=== PATIENT | female | born 1985 | race Caucasian/White ===

== ENCOUNTER 2016-03-28 23:46 | Emergency (ER) | payer MEDICAID ==
[~2016-03-28 23:46] MED LIST: ALBU17IN INH; BUSP10TA PO; CITA20TA4 PO; DEPA250T32 PO; JANU100T PO; LISI2.5T3 GT; METF1000 PO; NORC5TAB PO; VITA400T15 PO
[2016-03-29] MEDS ORDERED: ONDANSETRON 4MG/2ML VIAL (J2405) As Ordered ONE (00:42)
[2016-03-29] MEDS ORDERED: NORCO, ANEXSIA 5/325MG TABLET (HYDROcodone/ACETAMINOPHEN) As Ordered ONE (00:42)
[2016-03-29 00:43] LABS: CONTROL LINE UCG INT CTR LINE PRESENT
[2016-03-29 00:53] LABS: BASO % 0.5 % (0.0-1.0); EOS # 0.2 K/mm3 (0.0-0.50); EOS % 1.5 % (0.0-3.0); LARGE UNSTAINED CELL # 0.2 K/mm3 (0.0-0.4); LARGE UNSTAINED CELL % 2.2 % (0.0-4.0); LYMPH # 2.8 K/mm3 (1.5-4.5); LYMPH % 26.7 % (24.0-44.0); MEAN CORPUSCULAR HEMOGLOBIN 26.6 pg (27.0-33.0); MEAN CORPUSCULAR HGB CONC 32.7 g/dl (32.0-36.5); MEAN CORPUSCULAR VOLUME 81.1 fl (80.0-96.0); MONO # 0.4 K/mm3 (0.0-0.8); MONO % 3.9 % (0.0-5.0); NEUTROPHILS # 6.9 K/mm3 (1.8-7.7); NEUTROPHILS % 65.2 % (36.0-66.0); PLATELET COUNT, AUTOMATED 382 k/mm3 (150-450); RED CELL DISTRIBUTION WIDTH 13.8 % (11.5-14.5); WHITE BLOOD COUNT 10.6 K/mm3 (4.0-10.0)
[2016-03-29 01:18] LABS: ALBUMIN 3.5 GM/DL (3.2-5.2); ALBUMIN/GLOBULIN RATIO 0.81 (1.00-1.93); ALKALINE PHOSPHATASE 107 U/L (45-117); ALT/SGPT 25 U/L (12-78); AMYLASE 51 U/L (25-115); ANION GAP 8 MEQ/L (8-16); AST/SGOT 13 U/L (15-37); BILIRUBIN,DIRECT 0.1 MG/DL (0.0-0.2); BILIRUBIN,TOTAL 0.5 MG/DL (0.2-1.0); BLOOD UREA NITROGEN 8 MG/DL (7-18); CALCIUM LEVEL 8.6 MG/DL (8.5-10.1); CARBON DIOXIDE LEVEL 28 MEQ/L (21-32); CHLORIDE LEVEL 102 MEQ/L (98-107); CREATININE FOR GFR 0.63 MG/DL (0.55-1.02); GLOMERULAR FILTRATION RATE > 60.0 (>60); GLUCOSE, FASTING 85 MG/DL (70-105); POTASSIUM SERUM 3.4 MEQ/L (3.5-5.1); SODIUM LEVEL 138 MEQ/L (136-145); TOTAL PROTEIN 7.8 GM/DL (6.4-8.2)
[2016-03-29] MEDS ORDERED: ACETAMINOPHEN 325 MG TAB As Ordered ONE (02:19)
--- NOTE | 2016-03-29 02:30 | REPUSA ---
CLINICAL HISTORY: Abdominal pain. TECHNIQUE: Multiple axial, sagittal and coronal CT images were obtained through the abdomen and pelvi s without administration of oral or IV contrast material. COMMENTS: The liver is mildly enlarged with decreased attenuation without mass or defect. There is no intra or extrahepatic biliary ductal dilatation. The spleen is normal. The gallbladder is surgically absent. T he pancreas is of normal contour and attenuation characteristics. There is no evidence of adrenal mas s. The kidneys are normal in size, shape and configuration. No renal or ureteral calculi are identified. There is no hydroureter or hydronephrosis. There is no evidence for appendicitis. There is no bowel wall thickening. No evidence for small or la rge bowel obstruction. There is no evidence of abdominal ascites or lymphadenopathy. There is no evidence of intrinsic or extrinsic bladder mass. There is no pelvic ascites or lymphadeno inez. Mild large bowel fecal stasis. Images of the lung bases show no evidence of pleural or parenchymal mass. There are no pleural effusi ons. The bony structures are free of lytic or blastic lesions. Multilevel degenerative changes are seen in volving the thoracolumbar spine. Scattered calcifications are seen involving the aorta and major branches compatible with atherosclero sis. IMPRESSION: Hepatomegaly with fatty liver infiltration. Prior cholecystectomy. Thank you for your kind referral of this patient.
[2016-03-29] MEDS ORDERED: METHOCARBAMOL 500 MG TAB As Ordered ONE (02:31)
--- NOTE | 2016-03-29 02:47 | EDDOCDS ---
Physician Documentation [facility] Name: Asmita Dumas Age: 30 yrs Sex: Female : 1985 Arrival Date: 03/28/2016 Time: 23:46 Bed I1 / M1 Private MD: Anayeli Hoang Disposition: 03/29/16 02:29 Discharged to Home/Self Care. Impression: Low back pain, Nausea and vomiting. - Condition is Stable. - Discharge Instructions: Back Pain, Adult, Nausea and Vomiting. - Prescriptions for Robaxin 500 mg Oral Tablet - take 2 tablet by ORAL route every 6 hours As needed; 40 tablet. Tylenol 325 mg Oral Tablet - take 2 tablet by ORAL route every 6 hours as needed; 1 bottle. - Medication Reconciliation, Local Pharmacy Hours form. - Follow up: Anayeli Hoang MD; When: 1 - 2 days; Reason: Recheck today's complaints, Continuance of care. - Problem is new. - Symptoms have improved. Historical: - Allergies: Aspirinthroat swelling; - Home Meds: 1. Celexa 40 mg Oral tab once daily (Last dose: 03/28/2016 07:30) 2. BuSpar 20 mg Oral tab three times a day (Last dose: 03/28/2016 07:30) 3. gabapentin 600 mg Oral tab 3 times per day (Last dose: 03/28/2016 07:30) 4. Lyrica 150 mg Oral 3 times per day (Last dose: 03/27/2016) 5. Lipitor 20 mg Oral tab 1 tab once daily (Last dose: 03/28/2016 07:30) 6. lisinopril 2.5 mg Oral tab once daily (Last dose: 03/28/2016 07:30) 7. metformin 1,000 mg Oral tab 2 times per day (Last dose: 03/28/2016 07:30) 8. Vitamin [place] 82308 unit weekly Sunday 9. glyburide 5 mg oral tab 1 tab 2 times per day (Last dose: 03/28/2016 07:30) 10. insulin pen 40 units twice a day (Last dose: 03/28/2016 07:30) - PMHx: Anxiety; Depression; Diabetes - NIDDM: uncontrolled; Hypercholesterolemia; Bipolar disorder; Borderline Personality Disorder; - PSHx: Hernia repair; Tonsillectomy; Appendectomy; Cholecystectomy; Tubal ligation; - Social history: Smoking status: Patient uses tobacco products, current every day smoker. No barriers to communication noted, The patient speaks fluent Romansh, Speaks appropriately for age. - Family history: Not pertinent. - : The pt / caregiver states he / she is not on anticoagulants. Home medication list is obtained from the patient. - Exposure Risk Screening:: None identified. TRAIN EXAMINER: 03/28 23:57 LMP 03/02/2016 dsf Vital Signs: 23:48 BP 137 / 79; Pulse 99; Resp 18 S; Temp 98.5(O); Pulse Ox 99% on R/A; Weight 101.6 kg / gr2 223.99 lbs (M); Height 4 ft. 10 in. (147.32 cm) (R); Pain 6/10; 03/29 02:41 BP 122 / 68; Pulse 89; Resp 18; Temp 97.6(O); Pulse Ox 98% on R/A; Pain 5/10; mlc 03/28 23:48 Body Mass Index 46.82 (101.60 kg, 147.32 cm) gr2 MDM: 00:30 Undress patient appropriately for examination ordered. ck7 00:30 IV Saline Lock ordered. ck7 00:30 NS 0.9% 1000 ml IV at bolus once ordered. ck7 00:30 HYDROcodone-acetaminophen 5 mg-325 mg 1 tabs PO once ordered. ck7 00:30 Ondansetron 4 mg IVP once ordered. ck7 00:30 Urine Culture Ordered. EDMS 00:31 Amylase Ordered. EDMS 00:31 Basic Metabolic Profile Ordered. EDMS 00:31 CBC with Diff Ordered. EDMS 00:31 Lipase Ordered. EDMS 00:31 Liver Profile Ordered. EDMS 00:31 Urinalysis Ordered. EDMS 00:31 NOTHING BY MOUTH+DIET ordered. EDMS 00:36 UCG- In Lab Ordered. EDMS 00:41 Financial registration complete. pm4 00:46 [facility] Payment Agreement was scanned into [employer] and attached to record. pm4 00:58 CT ABD & PELVIS: No Contrast Ordered. EDMS 01:25 Basic Metabolic Profile Reviewed. ck7 01:25 CBC with Diff Reviewed. ck7 01:25 Liver Profile Reviewed. ck7 01:25 Urinalysis Reviewed. ck7 01:25 Amylase Reviewed. ck7 01:25 Lipase Reviewed. ck7 01:25 UCG- In Lab Reviewed. ck7 02:11 Acetaminophen Tablet 650 mg PO once ordered. ck7 02:28 Methocarbamol 1 grams PO once; dispense to go home with ordered. ck7 Administered Medications: 00:48 Drug: NS 0.9% 1000 ml [sodium chloride 0.9 % intravenous solution] Route: IV; Rate: mlc bolus; Site: right antecubital; 00:48 Drug: HYDROcodone-acetaminophen 1 tabs [hydrocodone 5 mg-acetaminophen 325 mg tablet (1 mlc tabs)] Route: PO; 00:49 Drug: Ondansetron 4 mg [ondansetron HCl 2 mg/mL intravenous solution (2 mL)] Route: mlc IVP; Site: right antecubital; 02:21 Drug: Acetaminophen 650 mg [acetaminophen 325 mg tablet (2 tabs)] Route: PO; ld5 02:40 Drug: Methocarbamol 1 grams [methocarbamol 500 mg tablet (2 tabs)] Route: PO; [facility] [place] 02:41 Follow up: Response: Med's dispensed home [facility] [place] Signatures: Dispatcher [employer] EDMalaika Gutierrez RN RN dsf Brendan Zimmerman, RPA-C RPA-Cck7 Taylor Posadas RN RN [facility] [place] Drew Adams, Reg Reg pm4 Mónica Oneal RN ld5 The chart was reviewed and I authenticate all verbal orders and agree with the evaluation and treatment provided.Attachments: 00:46 [facility] Payment Agreement pm4 MTDD
--- NOTE | 2016-03-29 02:47 | EDDOCDS ---
Nurse's Notes [facility] Name: Asmita Dumas Age: 30 yrs Sex: Female : 1985 Arrival Date: 03/28/2016 Time: 23:46 Bed I1 / M1 Private MD: Anayeli Hoang Diagnosis: Low back pain;Nausea and vomiting Presentation: 03/28 23:54 Presenting complaint: Patient states: left mid back pain that started at 1600. pt dsf reports vomiting earlier. Acute neurological deficits are not present. Mechanism of Injury: No Mechanism of Injury. Adult Sepsis Screening: The patient does not have new or worsening altered mentation. Patient's respiratory rate is less than 22. Systolic blood pressure is greater than 100. Patient has a qSOFA score of 0- Negative Sepsis Screen. Suicide/Homicide risk assessment- the patient denies having any suicidal and/or homicidal ideations and does not present with any other emotional, behavioral or mental health complaints. Status: Patient is not a non emergency services ambulance driver or dependent. Transition of care: patient was not received from another setting of care. 23:54 Method Of Arrival: Walkin/Carried/Asstd dsf 23:54 Acuity: MERON Level 4 dsf Triage Assessment: 23:57 General: Appears in no apparent distress, Behavior is appropriate for age. Pain: dsf Location: left mid back Pain currently is 9 out of 10 on a pain scale. HIV screening NA for this visit Offered previously. Musculoskeletal: Reports pain in left mid back. BAKER BISCUIT: 23:57 LMP 03/02/2016 dsf Historical: - Allergies: Aspirinthroat swelling; - Home Meds: 1. Celexa 40 mg Oral tab once daily (Last dose: 03/28/2016 07:30) 2. BuSpar 20 mg Oral tab three times a day (Last dose: 03/28/2016 07:30) 3. gabapentin 600 mg Oral tab 3 times per day (Last dose: 03/28/2016 07:30) 4. Lyrica 150 mg Oral 3 times per day (Last dose: 03/27/2016) 5. Lipitor 20 mg Oral tab 1 tab once daily (Last dose: 03/28/2016 07:30) 6. lisinopril 2.5 mg Oral tab once daily (Last dose: 03/28/2016 07:30) 7. metformin 1,000 mg Oral tab 2 times per day (Last dose: 03/28/2016 07:30) 8. Vitamin D Oral 00066 unit weekly Sunday 9. glyburide 5 mg oral tab 1 tab 2 times per day (Last dose: 03/28/2016 07:30) 10. insulin pen 40 units twice a day (Last dose: 03/28/2016 07:30) - PMHx: Anxiety; Depression; Diabetes - NIDDM: uncontrolled; Hypercholesterolemia; Bipolar disorder; Borderline Personality Disorder; - PSHx: Hernia repair; Tonsillectomy; Appendectomy; Cholecystectomy; Tubal ligation; - Social history: Smoking status: Patient uses tobacco products, current every day smoker. No barriers to communication noted, The patient speaks fluent Nepalese, Speaks appropriately for age. - Family history: Not pertinent. - : The pt / caregiver states he / she is not on anticoagulants. Home medication list is obtained from the patient. - Exposure Risk Screening:: None identified. Screenin:48 Infection Control. gr2 03/29 00:50 Screening information is obtained from the patient. Fall risk: No risks identified. mlc Assistance ADL's: requires no assistance with activities of daily living. Abuse/DV Screen: The patient / caregiver reports he/she is: not in a situation that causes fear, pain or injury. Nutritional screening: No deficits noted. Advance Directives: Currently, there is no health care proxy. home support is adequate. Assessment: 00:49 General: Appears in no apparent distress, comfortable, Behavior is cooperative. Pain: mlc Location: left mid back Pain currently is 9 out of 10 on a pain scale. Neurological: Level of Consciousness is awake, alert, obeys commands, Oriented to person, place, time. Cardiovascular: Capillary refill < 3 seconds Heart tones S1 S2 present. Respiratory: Airway is patent Respiratory effort is even, unlabored, Respiratory pattern is regular, Breath sounds are clear bilaterally. GI: Abdomen is obese, Bowel sounds present X 4 quads. Abd is soft X 4 quads Reports nausea. : Denies burning with urination, pain with urination. Derm: Skin is normal, Bruising that is dark purple, on right lower quadrant and left lower quadrant. 01:44 Reassessment: Patient appears in no apparent distress at this time. Patient states mlc symptoms have not improved. IV fluids infusing per order. resp easy/unlabored. pt watching tv. pt reports pain continues, provider made aware. 02:21 General: Pt laying quietly in bed. No apparent distress. Medicated per orders. Will ld5 continue to monitor. 02:41 General: Appears in no apparent distress, comfortable, Behavior is cooperative. mlc Neurological: Level of Consciousness is awake, alert, Oriented to person, place, time. Respiratory: Airway is patent Respiratory effort is even, unlabored, Respiratory pattern is regular. Derm: Skin is normal. Vital Signs: 03/28 23:48 BP 137 / 79; Pulse 99; Resp 18 S; Temp 98.5(O); Pulse Ox 99% on R/A; Weight 101.6 kg gr2 (M); Height 4 ft. 10 in. (147.32 cm) (R); Pain 6/10; 03/29 02:41 BP 122 / 68; Pulse 89; Resp 18; Temp 97.6(O); Pulse Ox 98% on R/A; Pain 5/10; mlc 03/28 23:48 Body Mass Index 46.82 (101.60 kg, 147.32 cm) gr2 Vitals: 03/28 23:48 Log In Time: March 28, 2016 at 23:48. gr2 ED Course: 23:48 Patient visited by Loretta Bhakta. gr2 23:48 Anayeli Hoang MD is Private Physician. gr2 23:48 Patient moved to Waiting gr2 23:50 Patient visited by Loretta Bhakta. gr2 23:50 Patient moved to Pre RCE gr2 23:55 Triage Initiated dsf 23:58 Patient moved to Triage 2 dsf 03/29 00:25 Brendan Zimmerman RPA-C is PHCP. ck7 00:25 Trish Rodrigez MD is Attending Physician. ck7 00:26 Patient visited by Brendan Zimmerman RPA-C. ck7 00:30 Patient moved to I1 / M1 ld5 00:37 UCG- In Lab Sent. ld5 00:37 Urinalysis Sent. ld5 00:37 Urine Culture Sent. ld5 00:37 Urine collected. Clean catch specimen. Urine specimen sent to lab. ld5 00:46 [facility] [place] Agreement was scanned into [employer]mitt[employer] and attached to record. pm4 00:48 Amylase Sent. mlc 00:48 Basic Metabolic Profile Sent. mlc 00:48 CBC with Diff Sent. mlc 00:48 Lipase Sent. mlc 00:48 Liver Profile Sent. mlc 00:50 The patient / caregiver is instructed regarding the plan of care and ED course. mlc 00:50 Inserted saline lock: 20 gauge in right antecubital area and blood collected. The mlc patient tolerated the procedure well. 00:51 Patient visited by Taylor Posadas RN. mlc 01:27 Patient visited by Brendan Zimmerman RPA-C. ck7 01:45 Patient visited by Taylor Posadas RN. mlc 02:15 Patient visited by Brendan Zimmerman RPA-C. ck7 02:21 Patient visited by Mónica Oneal RN. ld5 02:29 Anayeli Hoang MD is Referral Physician. ck7 02:41 Discontinued IV lock intact, bleeding controlled, pressure dressing applied, No mlc redness/swelling at site. No procedures done that require assistance. Administered Medications: 00:48 Drug: NS 0.9% 1000 ml [sodium chloride 0.9 % intravenous solution] Route: IV; Rate: mlc bolus; Site: right antecubital; 00:48 Drug: HYDROcodone-acetaminophen 1 tabs [hydrocodone 5 mg-acetaminophen 325 mg tablet (1 mlc tabs)] Route: PO; 00:49 Drug: Ondansetron 4 mg [ondansetron HCl 2 mg/mL intravenous solution (2 mL)] Route: mlc IVP; Site: right antecubital; 02:21 Drug: Acetaminophen 650 mg [acetaminophen 325 mg tablet (2 tabs)] Route: PO; ld5 02:40 Drug: Methocarbamol 1 grams [methocarbamol 500 mg tablet (2 tabs)] Route: PO; mlc 02:41 Follow up: Response: Med's dispensed home mlc Order Results: Lab Order: Amylase; SPEC'M 03/29/16 00:46 Test: AMYLASE; Value: 51; Range: 25-115; Units: U/L; Status: F Lab Order: Basic Metabolic Profile; SPEC'M 03/29/16 00:46 Test: GLUCOSE, FASTING; Value: 85; Range: 70-105; Units: MG/DL; Status: F Test: BLOOD UREA NITROGEN; Value: 8; Range: 7-18; Units: MG/DL; Status: F Test: CREATININE FOR GFR; Value: 0.63; Range: 0.55-1.02; Units: MG/DL; Status: F Test: GLOMERULAR FILTRATION RATE; Value: > 60.0; Range: >60; Status: F Test: SODIUM LEVEL; Value: 138; Range: 136-145; Units: MEQ/L; Status: F Test: POTASSIUM SERUM; Value: 3.4; Range: 3.5-5.1; Abnormal: Below low normal; Units: MEQ/L; Status: F Test: CHLORIDE LEVEL; Value: 102; Range: 98-107; Units: MEQ/L; Status: F Test: CARBON DIOXIDE LEVEL; Value: 28; Range: 21-32; Units: MEQ/L; Status: F Test: ANION GAP; Value: 8; Range: 8-16; Units: MEQ/L; Status: F Test: CALCIUM LEVEL; Value: 8.6; Range: 8.5-10.1; Units: MG/DL; Status: F Test Note: ; Units are mL/min/1.73 m2 Chronic Kidney Disease Staging per NKF: Stage I & II GFR >=60 Normal to Mildly Decreased Stage III GFR 30-59 Moderately Decreased Stage IV GFR 15-29 Severely Decreased Stage V GFR <15 Very Little GFR Left ESRD GFR <15 on THORACIC MEDICINE SPECIALIST Lab Order: CBC with Diff; SPEC'M 03/29/16 00:46 Test: WHITE BLOOD COUNT; Value: 10.6; Range: 4.0-10.0; Abnormal: Above high normal; Units: K/mm3; Status: F Test: RED BLOOD COUNT; Value: 5.37; Range: 4.00-5.40; Units: M/mm3; Status: F Test: HEMOGLOBIN; Value: 14.3; Range: 12.0-16.0; Units: g/dl; Status: F Test: HEMATOCRIT; Value: 43.6; Range: 36.0-47.0; Units: %; Status: F Test: MEAN CORPUSCULAR VOLUME; Value: 81.1; Range: 80.0-96.0; Units: fl; Status: F Test: MEAN CORPUSCULAR HEMOGLOBIN; Value: 26.6; Range: 27.0-33.0; Abnormal: Below low normal; Units: pg; Status: F Test: MEAN CORPUSCULAR HGB CONC; Value: 32.7; Range: 32.0-36.5; Units: g/dl; Status: F Test: RED CELL DISTRIBUTION WIDTH; Value: 13.8; Range: 11.5-14.5; Units: %; Status: F Test: PLATELET COUNT, AUTOMATED; Value: 382; Range: 150-450; Units: k/mm3; Status: F Test: NEUTROPHILS %; Value: 65.2; Range: 36.0-66.0; Units: %; Status: F Test: LYMPH %; Value: 26.7; Range: 24.0-44.0; Units: %; Status: F Test: MONO %; Value: 3.9; Range: 0.0-5.0; Units: %; Status: F Test: EOS %; Value: 1.5; Range: 0.0-3.0; Units: %; Status: F Test: BASO %; Value: 0.5; Range: 0.0-1.0; Units: %; Status: F Test: LARGE UNSTAINED CELL %; Value: 2.2; Range: 0.0-4.0; Units: %; Status: F Test: NEUTROPHILS #; Value: 6.9; Range: 1.8-7.7; Units: K/mm3; Status: F Test: LYMPH #; Value: 2.8; Range: 1.5-4.5; Units: K/mm3; Status: F Test: MONO #; Value: 0.4; Range: 0.0-0.8; Units: K/mm3; Status: F Test: EOS #; Value: 0.2; Range: 0.0-0.50; Units: K/mm3; Status: F Test: BASO #; Value: 0.0; Range: 0.0-0.2; Units: K/mm3; Status: F Test: LARGE UNSTAINED CELL #; Value: 0.2; Range: 0.0-0.4; Units: K/mm3; Status: F Lab Order: Lipase; SPEC' 03/29/16 00:46 Test: LIPASE; Value: 122; Range: 73-393; Units: U/L; Status: F Lab Order: Liver Profile; SPEC' 03/29/16 00:46 Test: AST/SGOT; Value: 13; Range: 15-37; Abnormal: Below low normal; Units: U/L; Status: F Test: ALT/SGPT; Value: 25; Range: 12-78; Units: U/L; Status: F Test: ALKALINE PHOSPHATASE; Value: 107; Range: 45-117; Units: U/L; Status: F Test: BILIRUBIN,TOTAL; Value: 0.5; Range: 0.2-1.0; Units: MG/DL; Status: F Test: BILIRUBIN,DIRECT; Value: 0.1; Range: 0.0-0.2; Units: MG/DL; Status: F Test: TOTAL PROTEIN; Value: 7.8; Range: 6.4-8.2; Units: GM/DL; Status: F Test: ALBUMIN; Value: 3.5; Range: 3.2-5.2; Units: GM/DL; Status: F Test: ALBUMIN/GLOBULIN RATIO; Value: 0.81; Range: 1.00-1.93; Abnormal: Below low normal; Status: F Lab Order: Urinalysis; SPEC'M 03/29/16 00:33 Test: APPEARANCE, URINE; Value: HAZY; Range: CLEAR; Status: F Test: COLOR, URINE; Value: YELLOW; Range: YELLOW; Status: F Test: PH,URINE; Value: 5.0; Range: 5.0-9.0; Units: UNITS; Status: F Test: SPECIFIC GRAVITY URINE AUTO; Value: 1.026; Range: 1.002-1.035; Status: F Test: PROTEIN, URINE AUTO; Value: 2+; Range: NEGATIVE; Abnormal: Above high normal; Units: mg/dL; Status: F Test: GLUCOSE, URINE (UA) AUTO; Value: NEGATIVE; Range: NEGATIVE; Units: mg/dL; Status: F Test: KETONE, URINE AUTO; Value: NEGATIVE; Range: NEGATIVE; Units: mg/dL; Status: F Test: UROBILINOGEN, URINE AUTO; Value: 0.2; Range: 0.0-2.0; Units: mg/dL; Status: F Test: BILIRUBIN, URINE AUTO; Value: NEGATIVE; Range: NEGATIVE; Status: F Test: NITRITE, URINE AUTO; Value: NEGATIVE; Range: NEGATIVE; Status: F Test: LEUKOCYTE ESTERASE, URINE AUTO; Value: NEGATIVE; Range: NEGATIVE; Status: F Test: BLOOD, URINE BLOOD; Value: NEGATIVE; Range: NEGATIVE; Status: F Test: WBC, URINE AUTO; Value: 3; Range: 0-3; Units: /HPF; Status: F Test: RBC, URINE AUTO; Value: 1; Range: 0-3; Units: /HPF; Status: F Test: BACTERIA, URINE AUTO; Value: NEGATIVE; Range: NEGATIVE; Status: F Test: SQUAMOUS EPITHELIAL CELL UR AU; Value: 7; Range: 0-6; Units: /HPF; Status: F Test: MUCUS, URINE; Value: LARGE; Range: NEGATIVE; Status: F Test: HYALINE CAST, URINE AUTO; Value: 21; Range: 0-1; Units: /LPF; Status: F Lab Order: UCG- In Lab; SPEC'M 03/29/16 00:32 Test: URINE PREG TEST; Value: NEGATIVE; Range: NEGATIVE; Status: F Outcome: 02:29 Discharge ordered by Provider. ck7 02:41 Discharge Assessment: Patient awake, alert and oriented x 3. No cognitive and/or mlc functional deficits noted. Patient verbalized understanding of disposition instructions. patient administered narcotics - yes. Pt provided with safe discharge. The following High Risk Discharge criteria are identified: None. Discharged to home ambulatory. Condition: good Condition: stable. Discharge instructions given to patient, Instructed on discharge instructions, follow up and referral plans. medication usage, no driving heavy equipment, Demonstrated understanding of instructions, medications, Pt was receptive of discharge instructions/ teaching. Prescriptions given X 2. CT Study completed. Property sent home with patient. 02:46 [place] [facility] [place]atures: Mónica Oneal,RN RN marlene5 Malaika NolascoRN RN dsf Brendan Zimmerman, RPA-C [id number] Loretta Bhakta gr2 Taylor Posadas RN RN [facility] [place] Drew Adams, Reg Reg pm4 Corrections: (The following items were deleted from the chart) 03/28 23:58 23:54 Acuity: MERON Level 3 dsf dsf MTDD
--- NOTE | 2016-03-31 03:47 | EDDOCDS ---
Nurse's Notes [facility] Name: Asmita Dumas Age: 30 yrs Sex: Female : 1985 Arrival Date: 03/28/2016 Time: 23:46 Bed I1 / M1 Private MD: Anayeli Hoang Diagnosis: Low back pain;Nausea and vomiting Presentation: 03/28 23:54 Presenting complaint: Patient states: left mid back pain that started at 1600. pt dsf reports vomiting earlier. Acute neurological deficits are not present. Mechanism of Injury: No Mechanism of Injury. Adult Sepsis Screening: The patient does not have new or worsening altered mentation. Patient's respiratory rate is less than 22. Systolic blood pressure is greater than 100. Patient has a qSOFA score of 0- Negative Sepsis Screen. Suicide/Homicide risk assessment- the patient denies having any suicidal and/or homicidal ideations and does not present with any other emotional, behavioral or mental health complaints. Status: Patient is not a caseworker protective services or dependent. Transition of care: patient was not received from another setting of care. 23:54 Method Of Arrival: Walkin/Carried/Asstd dsf 23:54 Acuity: MERON Level 4 dsf Triage Assessment: 23:57 General: Appears in no apparent distress, Behavior is appropriate for age. Pain: dsf Location: left mid back Pain currently is 9 out of 10 on a pain scale. HIV screening NA for this visit Offered previously. Musculoskeletal: Reports pain in left mid back. 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 Celexa 40 mg Oral tab once daily (Last dose: 03/28/2016 07:30) 2. BuSpar 20 mg Oral tab three times a day (Last dose: 03/28/2016 07:30) 3. gabapentin 600 mg Oral tab 3 times per day (Last dose: 03/28/2016 07:30) 4. Lyrica 150 mg Oral 3 times per day (Last dose: 03/27/2016) 5. Lipitor 20 mg Oral tab 1 tab once daily (Last dose: 03/28/2016 07:30) 6. lisinopril 2.5 mg Oral tab once daily (Last dose: 03/28/2016 07:30) 7. metformin 1,000 mg Oral tab 2 times per day (Last dose: 03/28/2016 07:30) 8. Vitamin D Oral 98479 unit weekly Sunday 9. glyburide 5 mg oral tab 1 tab 2 times per day (Last dose: 03/28/2016 07:30) 10. insulin pen 40 units twice a day (Last dose: 03/28/2016 07:30) - PMHx: Anxiety; Depression; Diabetes - NIDDM: uncontrolled; Hypercholesterolemia; Bipolar disorder; Borderline Personality Disorder; - PSHx: Hernia repair; Tonsillectomy; Appendectomy; Cholecystectomy; Tubal ligation; - Social history: Smoking status: Patient uses tobacco products, current every day smoker. No barriers to communication noted, The patient speaks fluent Venezuelan, Speaks appropriately for age. - Family history: Not pertinent. - : The pt / caregiver states he / she is not on anticoagulants. Home medication list is obtained from the patient. - Exposure Risk Screening:: None identified. Screenin:48 Infection Control. gr2 03/29 00:50 Screening information is obtained from the patient. Fall risk: No risks identified. mlc Assistance ADL's: requires no assistance with activities of daily living. Abuse/DV Screen: The patient / caregiver reports he/she is: not in a situation that causes fear, pain or injury. Nutritional screening: No deficits noted. Advance Directives: Currently, there is no health care proxy. home support is adequate. Assessment: 00:49 General: Appears in no apparent distress, comfortable, Behavior is cooperative. Pain: mlc Location: left mid back Pain currently is 9 out of 10 on a pain scale. Neurological: Level of Consciousness is awake, alert, obeys commands, Oriented to person, place, time. Cardiovascular: Capillary refill < 3 seconds Heart tones S1 S2 present. Respiratory: Airway is patent Respiratory effort is even, unlabored, Respiratory pattern is regular, Breath sounds are clear bilaterally. GI: Abdomen is obese, Bowel sounds present X 4 quads. Abd is soft X 4 quads Reports nausea. : Denies burning with urination, pain with urination. Derm: Skin is normal, Bruising that is dark purple, on right lower quadrant and left lower quadrant. 01:44 Reassessment: Patient appears in no apparent distress at this time. Patient states mlc symptoms have not improved. IV fluids infusing per order. resp easy/unlabored. pt watching tv. pt reports pain continues, provider made aware. 02:21 General: Pt laying quietly in bed. No apparent distress. Medicated per orders. Will ld5 continue to monitor. 02:41 General: Appears in no apparent distress, comfortable, Behavior is cooperative. mlc Neurological: Level of Consciousness is awake, alert, Oriented to person, place, time. Respiratory: Airway is patent Respiratory effort is even, unlabored, Respiratory pattern is regular. Derm: Skin is normal. Vital Signs: 03/28 23:48 BP 137 / 79; Pulse 99; Resp 18 S; Temp 98.5(O); Pulse Ox 99% on R/A; Weight 101.6 kg gr2 (M); Height 4 ft. 10 in. (147.32 cm) (R); Pain 6/10; 03/29 02:41 BP 122 / 68; Pulse 89; Resp 18; Temp 97.6(O); Pulse Ox 98% on R/A; Pain 5/10; mlc 03/28 23:48 Body Mass Index 46.82 (101.60 kg, 147.32 cm) gr2 Vitals: 03/28 23:48 Log In Time: March 28, 2016 at 23:48. gr2 ED Course: 23:48 Patient visited by Loretta Bhakta. gr2 23:48 Anayeli Hoang MD is Private Physician. gr2 23:48 Patient moved to Waiting gr2 23:50 Patient visited by Loretta Bhakta. gr2 23:50 Patient moved to Pre RCE gr2 23:55 Triage Initiated dsf 23:58 Patient moved to Triage 2 dsf 03/29 00:25 Brendan Zimmerman RPA-C is PHCP. ck7 00:25 Trish Rodrigez MD is Attending Physician. ck7 00:26 Patient visited by Brendan Zimmerman RPA-C. ck7 00:30 Patient moved to I1 / M1 ld5 00:37 UCG- In Lab Sent. ld5 00:37 Urinalysis Sent. ld5 00:37 Urine Culture Sent. ld5 00:37 Urine collected. Clean catch specimen. Urine specimen sent to lab. ld5 00:46 [facility] [place] was scanned into [employer] and attached to record. pm4 00:48 Amylase Sent. mlc 00:48 Basic Metabolic Profile Sent. mlc 00:48 CBC with Diff Sent. mlc 00:48 Lipase Sent. mlc 00:48 Liver Profile Sent. mlc 00:50 The patient / caregiver is instructed regarding the plan of care and ED course. mlc 00:50 Inserted saline lock: 20 gauge in right antecubital area and blood collected. The mlc patient tolerated the procedure well. 00:51 Patient visited by Taylor Posadas RN. mlc 01:27 Patient visited by Brendan Zimmerman RPA-C. ck7 01:45 Patient visited by Taylor Posadas RN. mlc 02:15 Patient visited by Brendan Zimmerman RPA-C. ck7 02:21 Patient visited by Mónica Oneal RN. ld5 02:29 Anayeli Hoang MD is Referral Physician. ck7 02:41 Discontinued IV lock intact, bleeding controlled, pressure dressing applied, No mlc redness/swelling at site. No procedures done that require assistance. 02:49 CT ABD & PELVIS: No Contrast Returned. EDMS 10:13 T-Sheet-- Draft Copy was scanned into [employer] and attached to record. gb Administered Medications: 00:48 Drug: NS 0.9% 1000 ml [sodium chloride 0.9 % intravenous solution] Route: IV; Rate: mlc bolus; Site: right antecubital; 00:48 Drug: HYDROcodone-acetaminophen 1 tabs [hydrocodone 5 mg-acetaminophen 325 mg tablet (1 mlc tabs)] Route: PO; 00:49 Drug: Ondansetron 4 mg [ondansetron HCl 2 mg/mL intravenous solution (2 mL)] Route: mlc IVP; Site: right antecubital; 02:21 Drug: Acetaminophen 650 mg [acetaminophen 325 mg tablet (2 tabs)] Route: PO; ld5 02:40 Drug: Methocarbamol 1 grams [methocarbamol 500 mg tablet (2 tabs)] Route: PO; mlc 02:41 Follow up: Response: Med's dispensed home mlc Order Results: Lab Order: Amylase; SPEC'M 03/29/16 00:46 Test: AMYLASE; Value: 51; Range: 25-115; Units: U/L; Status: F Lab Order: Basic Metabolic Profile; SPEC'M 03/29/16 00:46 Test: GLUCOSE, FASTING; Value: 85; Range: 70-105; Units: MG/DL; Status: F Test: BLOOD UREA NITROGEN; Value: 8; Range: 7-18; Units: MG/DL; Status: F Test: CREATININE FOR GFR; Value: 0.63; Range: 0.55-1.02; Units: MG/DL; Status: F Test: GLOMERULAR FILTRATION RATE; Value: > 60.0; Range: >60; Status: F Test: SODIUM LEVEL; Value: 138; Range: 136-145; Units: MEQ/L; Status: F Test: POTASSIUM SERUM; Value: 3.4; Range: 3.5-5.1; Abnormal: Below low normal; Units: MEQ/L; Status: F Test: CHLORIDE LEVEL; Value: 102; Range: 98-107; Units: MEQ/L; Status: F Test: CARBON DIOXIDE LEVEL; Value: 28; Range: 21-32; Units: MEQ/L; Status: F Test: ANION GAP; Value: 8; Range: 8-16; Units: MEQ/L; Status: F Test: CALCIUM LEVEL; Value: 8.6; Range: 8.5-10.1; Units: MG/DL; Status: F Test Note: ; Units are mL/min/1.73 m2 Chronic Kidney Disease Staging per NKF: Stage I & II GFR >=60 Normal to Mildly Decreased Stage III GFR 30-59 Moderately Decreased Stage IV GFR 15-29 Severely Decreased Stage V GFR <15 Very Little GFR Left ESRD GFR <15 on [employer] Lab Order: CBC with Diff; SPEC'M 03/29/16 00:46 Test: WHITE BLOOD COUNT; Value: 10.6; Range: 4.0-10.0; Abnormal: Above high normal; Units: K/mm3; Status: F Test: RED BLOOD COUNT; Value: 5.37; Range: 4.00-5.40; Units: M/mm3; Status: F Test: HEMOGLOBIN; Value: 14.3; Range: 12.0-16.0; Units: g/dl; Status: F Test: HEMATOCRIT; Value: 43.6; Range: 36.0-47.0; Units: %; Status: F Test: MEAN CORPUSCULAR VOLUME; Value: 81.1; Range: 80.0-96.0; Units: fl; Status: F Test: MEAN CORPUSCULAR HEMOGLOBIN; Value: 26.6; Range: 27.0-33.0; Abnormal: Below low normal; Units: pg; Status: F Test: MEAN CORPUSCULAR HGB CONC; Value: 32.7; Range: 32.0-36.5; Units: g/dl; Status: F Test: RED CELL DISTRIBUTION WIDTH; Value: 13.8; Range: 11.5-14.5; Units: %; Status: F Test: PLATELET COUNT, AUTOMATED; Value: 382; Range: 150-450; Units: k/mm3; Status: F Test: NEUTROPHILS %; Value: 65.2; Range: 36.0-66.0; Units: %; Status: F Test: LYMPH %; Value: 26.7; Range: 24.0-44.0; Units: %; Status: F Test: MONO %; Value: 3.9; Range: 0.0-5.0; Units: %; Status: F Test: EOS %; Value: 1.5; Range: 0.0-3.0; Units: %; Status: F Test: BASO %; Value: 0.5; Range: 0.0-1.0; Units: %; Status: F Test: LARGE UNSTAINED CELL %; Value: 2.2; Range: 0.0-4.0; Units: %; Status: F Test: NEUTROPHILS #; Value: 6.9; Range: 1.8-7.7; Units: K/mm3; Status: F Test: LYMPH #; Value: 2.8; Range: 1.5-4.5; Units: K/mm3; Status: F Test: MONO #; Value: 0.4; Range: 0.0-0.8; Units: K/mm3; Status: F Test: EOS #; Value: 0.2; Range: 0.0-0.50; Units: K/mm3; Status: F Test: BASO #; Value: 0.0; Range: 0.0-0.2; Units: K/mm3; Status: F Test: LARGE UNSTAINED CELL #; Value: 0.2; Range: 0.0-0.4; Units: K/mm3; Status: F Lab Order: Lipase; SPEC'M 03/29/16 00:46 Test: LIPASE; Value: 122; Range: 73-393; Units: U/L; Status: F Lab Order: Liver Profile; SPEC'M 03/29/16 00:46 Test: AST/SGOT; Value: 13; Range: 15-37; Abnormal: Below low normal; Units: U/L; Status: F Test: ALT/SGPT; Value: 25; Range: 12-78; Units: U/L; Status: F Test: ALKALINE PHOSPHATASE; Value: 107; Range: 45-117; Units: U/L; Status: F Test: BILIRUBIN,TOTAL; Value: 0.5; Range: 0.2-1.0; Units: MG/DL; Status: F Test: BILIRUBIN,DIRECT; Value: 0.1; Range: 0.0-0.2; Units: MG/DL; Status: F Test: TOTAL PROTEIN; Value: 7.8; Range: 6.4-8.2; Units: GM/DL; Status: F Test: ALBUMIN; Value: 3.5; Range: 3.2-5.2; Units: GM/DL; Status: F Test: ALBUMIN/GLOBULIN RATIO; Value: 0.81; Range: 1.00-1.93; Abnormal: Below low normal; Status: F Lab Order: Urinalysis; SPEC'M 03/29/16 00:33 Test: APPEARANCE, URINE; Value: HAZY; Range: CLEAR; Status: F Test: COLOR, URINE; Value: YELLOW; Range: YELLOW; Status: F Test: PH,URINE; Value: 5.0; Range: 5.0-9.0; Units: UNITS; Status: F Test: SPECIFIC GRAVITY URINE AUTO; Value: 1.026; Range: 1.002-1.035; Status: F Test: PROTEIN, URINE AUTO; Value: 2+; Range: NEGATIVE; Abnormal: Above high normal; Units: mg/dL; Status: F Test: GLUCOSE, URINE (UA) AUTO; Value: NEGATIVE; Range: NEGATIVE; Units: mg/dL; Status: F Test: KETONE, URINE AUTO; Value: NEGATIVE; Range: NEGATIVE; Units: mg/dL; Status: F Test: UROBILINOGEN, URINE AUTO; Value: 0.2; Range: 0.0-2.0; Units: mg/dL; Status: F Test: BILIRUBIN, URINE AUTO; Value: NEGATIVE; Range: NEGATIVE; Status: F Test: NITRITE, URINE AUTO; Value: NEGATIVE; Range: NEGATIVE; Status: F Test: LEUKOCYTE ESTERASE, URINE AUTO; Value: NEGATIVE; Range: NEGATIVE; Status: F Test: BLOOD, URINE BLOOD; Value: NEGATIVE; Range: NEGATIVE; Status: F Test: WBC, URINE AUTO; Value: 3; Range: 0-3; Units: /HPF; Status: F Test: RBC, URINE AUTO; Value: 1; Range: 0-3; Units: /HPF; Status: F Test: BACTERIA, URINE AUTO; Value: NEGATIVE; Range: NEGATIVE; Status: F Test: SQUAMOUS EPITHELIAL CELL UR AU; Value: 7; Range: 0-6; Units: /HPF; Status: F Test: MUCUS, URINE; Value: LARGE; Range: NEGATIVE; Status: F Test: HYALINE CAST, URINE AUTO; Value: 21; Range: 0-1; Units: /LPF; Status: F Lab Order: Urine Culture; SPEC'M 03/29/16 00:33 Test: URINE CULTURE; Value: <EXTERNAL COMMENT eCWMed> FULL REPORT IN LAB NOTES (eCW and Medent).; Status: F Test: URINE CULTURE; Value: URINE CULTURE RESULT NO GROWTH; Status: F Lab Order: UCG- In Lab; SPEC'M 03/29/16 00:32 Test: URINE PREG TEST; Value: NEGATIVE; Range: NEGATIVE; Status: F Radiology Order: CT ABD & PELVIS: No Contrast Test: CT ABD & PELVIS: No Contrast REASON FOR EXAMINATION: Renal colic; ; CLINICAL HISTORY: Abdominal pain.; TECHNIQUE: Multiple axial, sagittal and coronal CT images were obtained through the abdomen and pelvi; s without administration of oral or IV contrast material.; COMMENTS:; The liver is mildly enlarged with decreased attenuation without mass or defect. There is no intra or; extrahepatic biliary ductal dilatation. The spleen is normal. The gallbladder is surgically absent. T; he pancreas is of normal contour and attenuation characteristics. There is no evidence of adrenal mas; s.; The kidneys are normal in size, shape and configuration. No renal or ureteral calculi are identified.; There is no hydroureter or hydronephrosis.; There is no evidence for appendicitis. There is no bowel wall thickening. No evidence for small or la; rge bowel obstruction. There is no evidence of abdominal ascites or lymphadenopathy.; There is no evidence of intrinsic or extrinsic bladder mass. There is no pelvic ascites or lymphadeno; inez. Mild large bowel fecal stasis.; Images of the lung bases show no evidence of pleural or parenchymal mass. There are no pleural effusi; ons.; The bony structures are free of lytic or blastic lesions. Multilevel degenerative changes are seen in; volving the thoracolumbar spine.; Scattered calcifications are seen involving the aorta and major branches compatible with atherosclero; sis.; IMPRESSION:; Hepatomegaly with fatty liver infiltration.; Prior cholecystectomy.; Thank you for your kind referral of this patient.; ; Outcome: 02:29 Discharge ordered by Provider. ck7 02:41 Discharge Assessment: Patient awake, alert and oriented x 3. No cognitive and/or mlc functional deficits noted. Patient verbalized understanding of disposition instructions. patient administered narcotics - yes. Pt provided with safe discharge. The following High Risk Discharge criteria are identified: None. Discharged to home ambulatory. Condition: good Condition: stable. Discharge instructions given to patient, Instructed on discharge instructions, follow up and referral plans. medication usage, no driving heavy equipment, Demonstrated understanding of instructions, medications, Pt was receptive of discharge instructions/ teaching. Prescriptions given X 2. CT Study completed. Property sent home with patient. 02:46 [place] [facility] [place]atures: Dispatcher [employer] EDIN Neha Jara, Reg Reg gb Mónica Oneal RN RN ld5 Malaika Nolasco RN RN dsf Brendan Zimmerman RPA-C [id number] Loretta Bhakta gr2 Taylor Posadas RN RN [facility] [place] Drew Adams, Reg Reg pm4 Corrections: (The following items were deleted from the chart) 03/28 23:58 23:54 Acuity: MERON Level 3 dsf dsf Chart Complete MTDD
--- NOTE | 2016-03-31 03:47 | EDDOCDS ---
Physician Documentation [facility] Name: Asmita Dumas Age: 30 yrs Sex: Female : 1985 Arrival Date: 03/28/2016 Time: 23:46 Bed I1 / M1 Private MD: Anayeli Hoang Disposition: 03/29/16 02:29 Discharged to Home/Self Care. Impression: Low back pain, Nausea and vomiting. - Condition is Stable. - Discharge Instructions: Back Pain, Adult, Nausea and Vomiting. - Prescriptions for Robaxin 500 mg Oral Tablet - take 2 tablet by ORAL route every 6 hours As needed; 40 tablet. Tylenol 325 mg Oral Tablet - take 2 tablet by ORAL route every 6 hours as needed; 1 bottle. - Medication Reconciliation, Local Pharmacy Hours form. - Follow up: Anayeli Hoang MD; When: 1 - 2 days; Reason: Recheck today's complaints, Continuance of care. - Problem is new. - Symptoms have improved. Historical: - Allergies: Aspirinthroat swelling; - Home Meds: 1. Celexa 40 mg Oral tab once daily (Last dose: 03/28/2016 07:30) 2. BuSpar 20 mg Oral tab three times a day (Last dose: 03/28/2016 07:30) 3. gabapentin 600 mg Oral tab 3 times per day (Last dose: 03/28/2016 07:30) 4. Lyrica 150 mg Oral 3 times per day (Last dose: 03/27/2016) 5. Lipitor 20 mg Oral tab 1 tab once daily (Last dose: 03/28/2016 07:30) 6. lisinopril 2.5 mg Oral tab once daily (Last dose: 03/28/2016 07:30) 7. metformin 1,000 mg Oral tab 2 times per day (Last dose: 03/28/2016 07:30) 8. [place] [address]331 unit weekly Sunday 9. glyburide 5 mg oral tab 1 tab 2 times per day (Last dose: 03/28/2016 07:30) 10. insulin pen 40 units twice a day (Last dose: 03/28/2016 07:30) - PMHx: Anxiety; Depression; Diabetes - NIDDM: uncontrolled; Hypercholesterolemia; Bipolar disorder; Borderline Personality Disorder; - PSHx: Hernia repair; Tonsillectomy; Appendectomy; Cholecystectomy; Tubal ligation; - Social history: Smoking status: Patient uses tobacco products, current every day smoker. No barriers to communication noted, The patient speaks fluent Azeri, Speaks appropriately for age. - Family history: Not pertinent. - : The pt / caregiver states he / she is not on anticoagulants. Home medication list is obtained from the patient. - Exposure Risk Screening:: None identified. RELATIONSHIP SPECIALIST: 03/28 23:57 LMP 03/02/2016 dsf Vital Signs: 23:48 BP 137 / 79; Pulse 99; Resp 18 S; Temp 98.5(O); Pulse Ox 99% on R/A; Weight 101.6 kg / gr2 223.99 lbs (M); Height 4 ft. 10 in. (147.32 cm) (R); Pain 6/10; 03/29 02:41 BP 122 / 68; Pulse 89; Resp 18; Temp 97.6(O); Pulse Ox 98% on R/A; Pain 5/10; mlc 03/28 23:48 Body Mass Index 46.82 (101.60 kg, 147.32 cm) gr2 MDM: 00:30 Undress patient appropriately for examination ordered. ck7 00:30 IV Saline Lock ordered. ck7 00:30 NS 0.9% 1000 ml IV at bolus once ordered. ck7 00:30 HYDROcodone-acetaminophen 5 mg-325 mg 1 tabs PO once ordered. ck7 00:30 Ondansetron 4 mg IVP once ordered. ck7 00:30 Urine Culture Ordered. EDMS 00:31 Amylase Ordered. EDMS 00:31 Basic Metabolic Profile Ordered. EDMS 00:31 CBC with Diff Ordered. EDMS 00:31 Lipase Ordered. EDMS 00:31 Liver Profile Ordered. EDMS 00:31 Urinalysis Ordered. EDMS 00:31 NOTHING BY MOUTH+DIET ordered. EDMS 00:36 UCG- In Lab Ordered. EDMS 00:41 Financial registration complete. pm4 00:46 [facility] [place] was scanned into [employer] and attached to record. pm4 00:58 CT ABD & PELVIS: No Contrast Ordered. EDMS 01:25 Basic Metabolic Profile Reviewed. ck7 01:25 CBC with Diff Reviewed. ck7 01:25 Liver Profile Reviewed. ck7 01:25 Urinalysis Reviewed. ck7 01:25 Amylase Reviewed. ck7 01:25 Lipase Reviewed. ck7 01:25 UCG- In Lab Reviewed. ck7 02:11 Acetaminophen Tablet 650 mg PO once ordered. ck7 02:28 Methocarbamol 1 grams PO once; dispense to go home with ordered. ck7 10:13 T-Sheet-- Draft Copy was scanned into [employer] and attached to record. gb Administered Medications: 00:48 Drug: NS 0.9% 1000 ml [sodium chloride 0.9 % intravenous solution] Route: IV; Rate: mlc bolus; Site: right antecubital; 00:48 Drug: HYDROcodone-acetaminophen 1 tabs [hydrocodone 5 mg-acetaminophen 325 mg tablet (1 mlc tabs)] Route: PO; 00:49 Drug: Ondansetron 4 mg [ondansetron HCl 2 mg/mL intravenous solution (2 mL)] Route: mlc IVP; Site: right antecubital; 02:21 Drug: Acetaminophen 650 mg [acetaminophen 325 mg tablet (2 tabs)] Route: PO; ld5 02:40 Drug: Methocarbamol 1 grams [methocarbamol 500 mg tablet (2 tabs)] Route: PO; mlc 02:41 Follow up: Response: Med's dispensed home mlc Signatures: Dispatcher [employer] EDMS Neha Jara, Reg Reg gb Malaika Nolasco RN RN dsf Brendan Zimmerman, RPA-C RPA-Cck7 Taylor Posadas RN RN [facility] [place] Drew Adams, Reg Reg pm4 Mónica Oneal RN ld5 The chart was reviewed and I authenticate all verbal orders and agree with the evaluation and treatment provided.Attachments: 00:46 [facility] [place] Agreement pm4 10:13 T-Sheet-- Draft Copy gb Chart Complete MTDD
--- NOTE | 2016-03-31 03:47 | EDDOCDS ---
Physician Documentation [facility] Name: Asmita Dumas Age: 30 yrs Sex: Female : 1985 Arrival Date: 03/28/2016 Time: 23:46 Bed I1 / M1 Private MD: Anayeli Hoang Disposition: 03/29/16 02:29 Discharged to Home/Self Care. Impression: Low back pain, Nausea and vomiting. - Condition is Stable. - Discharge Instructions: Back Pain, Adult, Nausea and Vomiting. - Prescriptions for Robaxin 500 mg Oral Tablet - take 2 tablet by ORAL route every 6 hours As needed; 40 tablet. Tylenol 325 mg Oral Tablet - take 2 tablet by ORAL route every 6 hours as needed; 1 bottle. - Medication Reconciliation, Local Pharmacy Hours form. - Follow up: Anayeli Hoang MD; When: 1 - 2 days; Reason: Recheck today's complaints, Continuance of care. - Problem is new. - Symptoms have improved. Historical: - Allergies: Aspirinthroat swelling; - Home Meds: 1. Celexa 40 mg Oral tab once daily (Last dose: 03/28/2016 07:30) 2. BuSpar 20 mg Oral tab three times a day (Last dose: 03/28/2016 07:30) 3. gabapentin 600 mg Oral tab 3 times per day (Last dose: 03/28/2016 07:30) 4. Lyrica 150 mg Oral 3 times per day (Last dose: 03/27/2016) 5. Lipitor 20 mg Oral tab 1 tab once daily (Last dose: 03/28/2016 07:30) 6. lisinopril 2.5 mg Oral tab once daily (Last dose: 03/28/2016 07:30) 7. metformin 1,000 mg Oral tab 2 times per day (Last dose: 03/28/2016 07:30) 8. Vitamin D Oral 15507 unit weekly Sunday 9. glyburide 5 mg oral tab 1 tab 2 times per day (Last dose: 03/28/2016 07:30) 10. insulin pen 40 units twice a day (Last dose: 03/28/2016 07:30) - PMHx: Anxiety; Depression; Diabetes - NIDDM: uncontrolled; Hypercholesterolemia; Bipolar disorder; Borderline Personality Disorder; - PSHx: Hernia repair; Tonsillectomy; Appendectomy; Cholecystectomy; Tubal ligation; - Social history: Smoking status: Patient uses tobacco products, current every day smoker. No barriers to communication noted, The patient speaks fluent Polish, Speaks appropriately for age. - Family history: Not pertinent. - : The pt / caregiver states he / she is not on anticoagulants. Home medication list is obtained from the patient. - Exposure Risk Screening:: None identified. 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 10 in. (147.32 cm) (R); Pain 6/10; 03/29 02:41 BP 122 / 68; Pulse 89; Resp 18; Temp 97.6(O); Pulse Ox 98% on R/A; Pain 5/10; mlc 03/28 23:48 Body Mass Index 46.82 (101.60 kg, 147.32 cm) gr2 MDM: 00:30 Undress patient appropriately for examination ordered. ck7 00:30 IV Saline Lock ordered. ck7 00:30 NS 0.9% 1000 ml IV at bolus once ordered. ck7 00:30 HYDROcodone-acetaminophen 5 mg-325 mg 1 tabs PO once ordered. ck7 00:30 Ondansetron 4 mg IVP once ordered. ck7 00:30 Urine Culture Ordered. EDMS 00:31 Amylase Ordered. EDMS 00:31 Basic Metabolic Profile Ordered. EDMS 00:31 CBC with Diff Ordered. EDMS 00:31 Lipase Ordered. EDMS 00:31 Liver Profile Ordered. EDMS 00:31 Urinalysis Ordered. EDMS 00:31 NOTHING BY MOUTH+DIET ordered. EDMS 00:36 UCG- In Lab Ordered. EDMS 00:41 Financial registration complete. pm4 00:46 [facility] Payment Agreement was scanned into [facility] and attached to record. pm4 00:58 CT ABD & PELVIS: No Contrast Ordered. EDMS 01:25 Basic Metabolic Profile Reviewed. ck7 01:25 CBC with Diff Reviewed. ck7 01:25 Liver Profile Reviewed. ck7 01:25 Urinalysis Reviewed. ck7 01:25 Amylase Reviewed. ck7 01:25 Lipase Reviewed. ck7 01:25 UCG- In Lab Reviewed. ck7 02:11 Acetaminophen Tablet 650 mg PO once ordered. ck7 02:28 Methocarbamol 1 grams PO once; dispense to go home with ordered. ck7 10:13 T-Sheet-- Draft Copy was scanned into [facility] and attached to record. gb Administered Medications: 00:48 Drug: NS 0.9% 1000 ml [sodium chloride 0.9 % intravenous solution] Route: IV; Rate: mlc bolus; Site: right antecubital; 00:48 Drug: HYDROcodone-acetaminophen 1 tabs [hydrocodone 5 mg-acetaminophen 325 mg tablet (1 mlc tabs)] Route: PO; 00:49 Drug: Ondansetron 4 mg [ondansetron HCl 2 mg/mL intravenous solution (2 mL)] Route: mlc IVP; Site: right antecubital; 02:21 Drug: Acetaminophen 650 mg [acetaminophen 325 mg tablet (2 tabs)] Route: PO; ld5 02:40 Drug: Methocarbamol 1 grams [methocarbamol 500 mg tablet (2 tabs)] Route: PO; mlc 02:41 Follow up: Response: Med's dispensed home mlc Signatures: Dispatcher [employer] EDMS Neha Jara, Reg Reg gb Malaika Nolasco RN RN dsf Brendan Zimmerman, RPA-C RPA-[id number] Taylor Posadas RN RN [facility] Drew Adams, Reg Reg pm4 Mónica Oneal RN ld5 The chart was reviewed and I authenticate all verbal orders and agree with the evaluation and treatment provided.Attachments: 00:46 [facility] Payment Agreement pm4 10:13 T-Sheet-- Draft Copy gb Chart Complete MTDD
== END 2016-03-29 02:46 | disposition home or self-care (01) ==
LOC: M ED 23:46
DX: M54.5 Low back pain (principal); R11.2 Nausea with vomiting, unspecified; F41.9 Anxiety disorder, unspecified; F32.9 Major depressive disorder, single episode, unspecified; E11.65 Type 2 diabetes mellitus with hyperglycemia; E78.00 Pure hypercholesterolemia, unspecified; F31.9 Bipolar disorder, unspecified; F60.3 Borderline personality disorder; Z79.84 Long term (current) use of oral hypoglycemic drugs; Z79.899 Other long term (current) drug therapy; Z79.4 Long term (current) use of insulin; Z88.6 Allergy status to analgesic agent
CPT/HCPCS: 36415; 74176; 80048; 80076; 81001; 82150; 83690; 84703; 85025; 87086; 96374; 99284; J2405

== ENCOUNTER 2016-05-12 11:46 | Emergency (ER) | payer MEDICAID ==
[~2016-05-12] VITALS: Ht 147.3 cm; Wt 104.3 kg
[2016-05-12] MEDS ORDERED: CELE10TA (12:09)
[2016-05-12] MEDS ORDERED: ANAF25CA (12:09)
[2016-05-12] MEDS ORDERED: HYDR-4274 (12:09)
[2016-05-12] MEDS ORDERED: INSULADS INJ (12:11)
[2016-05-12] MEDS ORDERED: GLYB5TA GT (12:11)
[2016-05-12] MEDS ORDERED: TESS100C PO (13:03)
[2016-05-12 13:40] VITALS: BP 129/87
== END 2016-05-12 13:51 | disposition home or self-care (01) ==
LOC: M ED 13:17
DX: J06.9 Acute upper respiratory infection, unspecified (principal)

== ENCOUNTER 2016-05-19 21:56 | Emergency (ER) | payer OTHER, MEDICAID ==
[~2016-05-19] VITALS: Ht 147.3 cm; Wt 102.1 kg
[~2016-05-19 21:56] MED LIST changes: +ANAF25CA; +CELE10TA; +GLYB5TA GT; +HYDR-4274; +INSULADS INJ; +NORC1TAB4 PO; -NORC5TAB PO; +TESS100C PO
[2016-05-19] MEDS ORDERED: NS 1,000 ML IV ONE (23:30)
[2016-05-19] MEDS ORDERED: MORPHINE 4 MG/ML 1ML SYRINGE IV ONE (23:30)
[2016-05-19 23:48] LABS: BASO % 0.3 % (0.0-1.0); EOS # 0.1 K/mm3 (0.0-0.50); EOS % 1.5 % (0.0-3.0); LARGE UNSTAINED CELL # 0.2 K/mm3 (0.0-0.4); LARGE UNSTAINED CELL % 1.7 % (0.0-4.0); LYMPH # 3.5 K/mm3 (1.5-4.5); LYMPH % 40.1 % (24.0-44.0); MEAN CORPUSCULAR HEMOGLOBIN 26.5 pg (27.0-33.0); MEAN CORPUSCULAR HGB CONC 32.6 g/dl (32.0-36.5); MEAN CORPUSCULAR VOLUME 81.3 fl (80.0-96.0); MONO # 0.4 K/mm3 (0.0-0.8); MONO % 4.9 % (0.0-5.0); NEUTROPHILS # 4.3 K/mm3 (1.8-7.7); NEUTROPHILS % 51.4 % (36.0-66.0); PLATELET COUNT, AUTOMATED 340 k/mm3 (150-450); RED CELL DISTRIBUTION WIDTH 14.2 % (11.5-14.5); WHITE BLOOD COUNT 8.4 K/mm3 (4.0-10.0)
[2016-05-19 23:54] LABS: INR 0.97
[2016-05-19] MEDS ORDERED: ISOVUE-370 76% 100ML VIAL (Q9967) As Ordered ONE (23:54)
[2016-05-20 00:09] LABS: ALBUMIN 3.1 GM/DL (3.2-5.2); ALBUMIN/GLOBULIN RATIO 0.82 (1.00-1.93); ALKALINE PHOSPHATASE 126 U/L (45-117); ALT/SGPT 24 U/L (12-78); AMYLASE 49 U/L (25-115); ANION GAP 5 MEQ/L (8-16); AST/SGOT 11 U/L (15-37); BILIRUBIN,DIRECT < 0.1 MG/DL (0.0-0.2); BILIRUBIN,TOTAL 0.2 MG/DL (0.2-1.0); BLOOD UREA NITROGEN 11 MG/DL (7-18); CALCIUM LEVEL 8.9 MG/DL (8.5-10.1); CARBON DIOXIDE LEVEL 30 MEQ/L (21-32); CHLORIDE LEVEL 104 MEQ/L (98-107); CREATININE FOR GFR 0.59 MG/DL (0.55-1.02); GLOMERULAR FILTRATION RATE > 60.0 (>60); GLUCOSE, FASTING 181 MG/DL (70-105); POTASSIUM SERUM 3.9 MEQ/L (3.5-5.1); SODIUM LEVEL 139 MEQ/L (136-145); TOTAL PROTEIN 6.9 GM/DL (6.4-8.2)
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
[2016-05-20] MEDS ORDERED: ROBA500T PO (00:57)
[2016-05-20 01:10] VITALS: BP 132/58
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
== END 2016-05-20 01:13 | disposition home or self-care (01) ==
LOC: M ED 23:01
DX: S73.101A Unspecified sprain of right hip, initial encounter (principal); S83.92XA Sprain of unspecified site of left knee, initial encounter; R10.9 Unspecified abdominal pain; V43.62XA Car passenger injured in collision with other type car in traffic accident, initial encounter; Y92.410 Unspecified street and highway as the place of occurrence of the external cause; Y93.89 Activity, other specified; Y99.8 Other external cause status; K76.0 Fatty (change of) liver, not elsewhere classified
CPT/HCPCS: 72110; 73502; 73564; 74177; 80048; 80076; 81001; 81025; 82150; 83605; 83690; 85025; 85610; 85730; 86850; 86900; 86901; 96361; 96374; 99283; Q9967

== ENCOUNTER → 2016-09-19 | Outpatient (REF) | payer MEDICAID ==
[~2016-09-19] MED LIST changes: +GLYB25TA PO; -HYDR-4274; +HYDR50TA70; +LIPI10TA PO; +LYRI150C PO; -METF1000 PO; +METF10004 PO; +NEUR600T PO; +ROBA500T PO
[2016-09-19 13:19] LABS: MEAN CORPUSCULAR HEMOGLOBIN 26.7 pg (27.0-33.0); MEAN CORPUSCULAR HGB CONC 32.6 g/dl (32.0-36.5); MEAN CORPUSCULAR VOLUME 82.1 fl (80.0-96.0); RED CELL DISTRIBUTION WIDTH 14.6 % (11.5-14.5); WHITE BLOOD COUNT 8.8 K/mm3 (4.0-10.0)
[2016-09-19 14:32] LABS: ALBUMIN 3.7 GM/DL (3.2-5.2); ALKALINE PHOSPHATASE 86 U/L (45-117); ALT/SGPT 48 U/L (12-78); ANION GAP 6 MEQ/L (8-16); AST/SGOT 45 U/L (15-37); BILIRUBIN,TOTAL 0.6 MG/DL (0.2-1.0); BLOOD UREA NITROGEN 9 MG/DL (7-18); CALCIUM LEVEL 9.3 MG/DL (8.5-10.1); CARBON DIOXIDE LEVEL 29 MEQ/L (21-32); CHLORIDE LEVEL 99 MEQ/L (98-107); CHOLESTEROL LEVEL 217 MG/DL (<200); CREATININE FOR GFR 0.59 MG/DL (0.55-1.02); GLOMERULAR FILTRATION RATE > 60.0 (>60); GLUCOSE, FASTING 161 MG/DL (70-105); POTASSIUM SERUM 4.2 MEQ/L (3.5-5.1); SODIUM LEVEL 134 MEQ/L (136-145); TOTAL PROTEIN 7.4 GM/DL (6.4-8.2); TRIGLYCERIDES LEVEL 218 MG/DL (<150)
== END ==
LOC: M SFHCPLAZ 10:13
PROVIDERS: ATTEND Nurse Practitioner Adult Health
DX: Z00.00 Encounter for general adult medical examination without abnormal findings (principal); E11.42 Type 2 diabetes mellitus with diabetic polyneuropathy; E78.2 Mixed hyperlipidemia

== ENCOUNTER 2016-11-05 17:38 | Emergency (ER) | payer MEDICAID ==
[~2016-11-05] VITALS: Ht 147.3 cm; Wt 104.5 kg
[~2016-11-05 17:38] MED LIST changes: -GLYB25TA PO; -LIPI10TA PO; -LYRI150C PO; -NEUR600T PO
[2016-11-05] MEDS ORDERED: NEUR600T PO (17:49)
[2016-11-05] MEDS ORDERED: LIPI10TA PO (17:49)
[2016-11-05] MEDS ORDERED: LYRI150C PO (17:49)
[2016-11-05] MEDS ORDERED: GLYB25TA PO (17:49)
[2016-11-05] MEDS ORDERED: INSULADS INJ (17:49)
[2016-11-05 18:40] LABS: BASO % 0.5 % (0.0-1.0); EOS # 0.2 K/mm3 (0.0-0.50); EOS % 1.7 % (0.0-3.0); LARGE UNSTAINED CELL # 0.2 K/mm3 (0.0-0.4); LYMPH # 2.4 K/mm3 (1.5-4.5); LYMPH % 23.8 % (24.0-44.0); MEAN CORPUSCULAR HEMOGLOBIN 26.5 pg (27.0-33.0); MEAN CORPUSCULAR HGB CONC 32.5 g/dl (32.0-36.5); MEAN CORPUSCULAR VOLUME 81.4 fl (80.0-96.0); MONO # 0.4 K/mm3 (0.0-0.8); MONO % 4.6 % (0.0-5.0); NEUTROPHILS # 6.4 K/mm3 (1.8-7.7); NEUTROPHILS % 67.5 % (36.0-66.0); PLATELET COUNT, AUTOMATED 303 k/mm3 (150-450); RED CELL DISTRIBUTION WIDTH 14.7 % (11.5-14.5); WHITE BLOOD COUNT 9.4 K/mm3 (4.0-10.0)
[2016-11-05] MEDS: NITROGLYCERIN 0.4 MG SUBL TABLET SL PRN ×2 (18:44→19:25)
[2016-11-05 18:52] LABS: INR 0.94
--- NOTE | 2016-11-05 18:52 | REP ---
Clinical: Chest pain . Comparison: 06/21/2014 . Technique: PA and lateral. Findings: The mediastinum and cardiac silhouette are normal. The lung vidal are clear and without acute consolidation, effusion, or pneumothorax. The skeletal structures are intact and normal. Impression: 1. No acute cardiopulmonary process. Signed by Alex Daily MD 11/05/2016 06:43 P
[2016-11-05 19:02] LABS: ALBUMIN 3.1 GM/DL (3.2-5.2); ALBUMIN/GLOBULIN RATIO 0.74 (1.00-1.93); ALKALINE PHOSPHATASE 120 U/L (45-117); ALT/SGPT 56 U/L (12-78); ANION GAP 9 MEQ/L (8-16); AST/SGOT 51 U/L (15-37); BILIRUBIN,DIRECT < 0.1 MG/DL (0.0-0.2); BILIRUBIN,TOTAL 0.3 MG/DL (0.2-1.0); BLOOD UREA NITROGEN 11 MG/DL (7-18); CALCIUM LEVEL 8.8 MG/DL (8.5-10.1); CARBON DIOXIDE LEVEL 27 MEQ/L (21-32); CHLORIDE LEVEL 101 MEQ/L (98-107); GLOMERULAR FILTRATION RATE > 60.0 (>60); GLUCOSE, FASTING 303 MG/DL (70-105); POTASSIUM SERUM 3.5 MEQ/L (3.5-5.1); SODIUM LEVEL 137 MEQ/L (136-145); TOTAL PROTEIN 7.3 GM/DL (6.4-8.2)
[2016-11-05] MEDS ORDERED: ISOVUE-370 76% 100ML VIAL (Q9967) As Ordered ONE (19:21)
[2016-11-05 19:25] VITALS: BP 135/70
--- NOTE | 2016-11-05 19:59 | REP ---
Clinical: Chest pain and shortness of breath. Technique: Axial contrast enhanced images from the thoracic inlet to the upper abdomen using 100 ml Isovue 370 intravenous contrast material with multiplanar re-formations. Findings: Satisfactory enhancement of the pulmonary vasculature is achieved and no filling defects are identified to suggest pulmonary embolus. Further evaluation of the mediastinum demonstrates normal thoracic aorta, heart and pericardium. The bilateral lung vidal are well aerated and clear without consolidation, pleural effusion or pneumothorax. Tracheobronchial tree is patent. No nodule or mass lesion is identified. No adenopathy noted. Surrounding musculoskeletal structures intact Impression: No evidence for pulmonary embolus. No acute mediastinal or pleural parenchymal process. Signed by Alex Daily MD 11/05/2016 07:50 P
[2016-11-05] MEDS ORDERED: HumuLIN R (REGULAR) INSULIN (NovoLIN R) **100U/ML** PER UNIT IV ONE (20:00)
[2016-11-06 00:08] VITALS: BP 142/86
--- NOTE | 2016-11-06 19:25 | ECGEPIP ---
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 RBBB SIMILAR TO 12/17/14 Electronically Signed On 11-06-2016 19:24:59 EDT by Orville Encarnacion
--- NOTE | 2016-11-06 19:29 | ECGEPIP ---
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 RBBB NONSPECIFIC T-WAVE ABNORMALITY SIMILAR TO PRIOR ON SAME DATE Electronically Signed On 11-06-2016 19:28:56 EDT by Orville Encarnacion
== END 2016-11-06 00:11 | disposition home or self-care (01) ==
LOC: M ED 17:38
DX: R07.9 Chest pain, unspecified (principal); R06.02 Shortness of breath; E11.9 Type 2 diabetes mellitus without complications; J45.909 Unspecified asthma, uncomplicated; F17.200 Nicotine dependence, unspecified, uncomplicated; Z79.899 Other long term (current) drug therapy; Z79.84 Long term (current) use of oral hypoglycemic drugs
CPT/HCPCS: 36415; 71020; 71275; 80048; 80076; 82550; 82553; 83690; 83880; 85025; 85610; 85730; 93005; 93041; 94760; 96374; 99285; Q9967

== ENCOUNTER → 2016-11-15 | Outpatient (REF) | payer MEDICAID ==
[~2016-11-15] MED LIST changes: +GLYB25TA PO; +LIPI10TA PO; +LYRI150C PO; +NEUR600T PO
== END ==
LOC: M SFHCWAGY 14:42
PROVIDERS: ATTEND Nurse Practitioner Women's Health
DX: Z12.4 Encounter for screening for malignant neoplasm of cervix (principal); N92.1 Excessive and frequent menstruation with irregular cycle; Z11.3 Encounter for screening for infections with a predominantly sexual mode of transmission

== ENCOUNTER 2017-03-10 14:00 | Emergency (ER) | payer MEDICAID ==
[2017-03-10] MEDS: MORPHINE 10 MG/ML 1ML VIAL IV (14:59)
[2017-03-10] MEDS: diazePAM 5 MG TAB PO (14:59)
[2017-03-10 15:14] LABS: BASO % 0.4 % (0.0-1.0); EOS # 0.3 10^3/uL (0.0-0.50); EOS % 2.3 % (0.0-3.0); HEMOGLOBIN 13.7 g/dl (12.0-16.0); IMMATURE GRANULOCYTE # 0.1 10^3/uL (0-0); IMMATURE GRANULOCYTE % 0.5 % (0-0); LYMPH # 3.3 10^3/uL (1.5-4.5); LYMPH % 29.3 % (24.0-44.0); MEAN CORPUSCULAR HEMOGLOBIN 26.4 pg (27.0-33.0); MEAN CORPUSCULAR HGB CONC 32.6 g/dl (32.0-36.5); MEAN CORPUSCULAR VOLUME 81.1 fl (80.0-96.0); MONO # 0.5 10^3/uL (0.0-0.8); MONO % 4.9 % (0.0-5.0); NEUTROPHILS # 6.9 10^3/uL (1.8-7.7); NEUTROPHILS % 62.6 % (36.0-66.0); PLATELET COUNT, AUTOMATED 417 10^3/uL (150-450); RED BLOOD COUNT 5.18 10^6/uL (4.00-5.40); RED CELL DISTRIBUTION WIDTH 14.5 % (11.5-14.5); WHITE BLOOD COUNT 11.1 10^3/uL (4.0-10.0)
[2017-03-10 15:25] LABS: KETONE, URINE AUTO RFX NEGATIVE (NEGATIVE); LEUKOCYTE ESTERASE UR AUTO RFX NEGATIVE (NEGATIVE); MUCUS, URINE RFX SMALL (NEGATIVE); NITRITE, URINE AUTO RFX NEGATIVE (NEGATIVE); RBC, URINE AUTO RFX 0 /HPF (0-3); SPECIFIC GRAVITY UR AUTO RFX 1.023 (1.002-1.035); SQUAM EPITHELIAL CELL UR AURFX 1 /HPF (0-6); WBC, URINE AUTO RFX 2 /HPF (0-3)
[2017-03-10 15:38] LABS: ANION GAP 6 MEQ/L (8-16); BLOOD UREA NITROGEN 10 MG/DL (7-18); CARBON DIOXIDE LEVEL 30 MEQ/L (21-32); CHLORIDE LEVEL 105 MEQ/L (98-107); CREATININE FOR GFR 0.62 MG/DL (0.55-1.02); GLOMERULAR FILTRATION RATE > 60.0 (>60); GLUCOSE, FASTING 120 MG/DL (70-105); POTASSIUM SERUM 4.7 MEQ/L (3.5-5.1); SODIUM LEVEL 141 MEQ/L (136-145)
== END 2017-03-10 16:24 | disposition home or self-care (01) ==
LOC: M ED 14:00
DX: M54.42 Lumbago with sciatica, left side (principal); J44.9 Chronic obstructive pulmonary disease, unspecified; K21.9 Gastro-esophageal reflux disease without esophagitis; F90.9 Attention-deficit hyperactivity disorder, unspecified type; F31.9 Bipolar disorder, unspecified; F17.210 Nicotine dependence, cigarettes, uncomplicated; Z79.4 Long term (current) use of insulin; Z79.899 Other long term (current) drug therapy; Z79.84 Long term (current) use of oral hypoglycemic drugs; Z88.8 Allergy status to other drugs, medicaments and biological substances; Z91.018 Allergy to other foods
CPT/HCPCS: 80048

== ENCOUNTER → 2017-03-14 | Outpatient (REF) | payer MEDICAID ==
[2017-03-14 18:30] LABS: ALBUMIN 3.5 GM/DL (3.2-5.2); ALKALINE PHOSPHATASE 109 U/L (45-117); ALT/SGPT 31 U/L (12-78); ANION GAP 8 MEQ/L (8-16); AST/SGOT 17 U/L (7-37); BILIRUBIN,TOTAL 0.3 MG/DL (0.2-1.0); BLOOD UREA NITROGEN 12 MG/DL (7-18); CALCIUM LEVEL 9.6 MG/DL (8.5-10.1); CARBON DIOXIDE LEVEL 28 MEQ/L (21-32); CHLORIDE LEVEL 102 MEQ/L (98-107); CREATININE FOR GFR 0.66 MG/DL (0.55-1.02); GLOMERULAR FILTRATION RATE > 60.0 (>60); GLUCOSE, FASTING 196 MG/DL (70-105); POTASSIUM SERUM 4.7 MEQ/L (3.5-5.1); SODIUM LEVEL 138 MEQ/L (136-145); TOTAL 25(OH) VITAMIN D 21.7 NG/ML (30.0-100.0); TOTAL PROTEIN 7.4 GM/DL (6.4-8.2)
[2017-03-14 18:55] LABS: ESTIMATED AVERAGE GLUCOSE 143 MG/DL (60-110); HEMOGLOBIN A1c 6.6 %
[2017-03-14 19:13] LABS: MAU/CREAT RATIO 834.4 MCG/MG (0.0-30.0)
== END ==
LOC: M SFHCPLAZ 15:36
DX: E55.9 Vitamin D deficiency, unspecified (principal); E11.42 Type 2 diabetes mellitus with diabetic polyneuropathy

== ENCOUNTER → 2017-03-16 | Outpatient (CLI) | payer MEDICAID | LOC: M PAIN 14:00 | DX: G89.29 Other chronic pain (principal); M51.16 Intervertebral disc disorders with radiculopathy, lumbar region; M51.17 Intervertebral disc disorders with radiculopathy, lumbosacral region; E11.43 Type 2 diabetes mellitus with diabetic autonomic (poly)neuropathy; I10 Essential (primary) hypertension; K21.9 Gastro-esophageal reflux disease without esophagitis; M19.90 Unspecified osteoarthritis, unspecified site; F41.9 Anxiety disorder, unspecified; F31.9 Bipolar disorder, unspecified; F95.2 Tourette's disorder; F42.4 Excoriation (skin-picking) disorder; F17.210 Nicotine dependence, cigarettes, uncomplicated; J44.9 Chronic obstructive pulmonary disease, unspecified; Z79.4 Long term (current) use of insulin; Z79.899 Other long term (current) drug therapy; Z88.6 Allergy status to analgesic agent; Z91.041 Radiographic dye allergy status | CPT/HCPCS: G0463 ==

== ENCOUNTER → 2017-03-26 | Outpatient (CLI) | payer MEDICAID | LOC: M RAD 14:31 | DX: M54.5 Low back pain (principal); M54.2 Cervicalgia; M79.604 Pain in right leg; M79.605 Pain in left leg | CPT/HCPCS: 72148 ==

== ENCOUNTER → 2017-04-06 | Outpatient (CLI) | payer MEDICAID | LOC: M PAIN 15:45 | DX: G89.29 Other chronic pain (principal); M47.816 Spondylosis without myelopathy or radiculopathy, lumbar region; M70.62 Trochanteric bursitis, left hip; E11.40 Type 2 diabetes mellitus with diabetic neuropathy, unspecified; I10 Essential (primary) hypertension; J45.909 Unspecified asthma, uncomplicated; E78.00 Pure hypercholesterolemia, unspecified; M19.90 Unspecified osteoarthritis, unspecified site; F41.9 Anxiety disorder, unspecified; F31.9 Bipolar disorder, unspecified; F95.2 Tourette's disorder; F17.210 Nicotine dependence, cigarettes, uncomplicated; Z79.4 Long term (current) use of insulin; Z79.899 Other long term (current) drug therapy; Z88.6 Allergy status to analgesic agent; Z91.041 Radiographic dye allergy status | CPT/HCPCS: G0463 ==

== ENCOUNTER → 2017-04-25 | Outpatient (CLI) | payer MEDICAID ==
[~2017-04-25] MED LIST changes: -ALBU17IN INH; -ANAF25CA; +BUPIVACAINE HCL 0.25% 30 ML VIAL As Ordered; -BUSP10TA PO; -CELE10TA; -CITA20TA4 PO; -DEPA250T32 PO; -GLYB25TA PO; -GLYB5TA GT; -HYDR50TA70; -INSULADS INJ; +ISOVUE-M 300 61% 15ML VIAL (Q9967) As Ordered; -JANU100T PO; +LIDOCAINE 1% SDV INJ 30 ML VIAL As Ordered; -LIPI10TA PO; -LISI2.5T3 GT; -LYRI150C PO; -METF10004 PO; -NEUR600T PO; -NORC1TAB4 PO; -ROBA500T PO; -TESS100C PO; +TRIAMCINOLONE ACETONIDE SUSP 40 MG/ML VIAL (J3301) As Ordered; -VITA400T15 PO; +diazePAM 5 MG TAB As Ordered; +oxyCODONE 5MG TAB As Ordered
== END ==
LOC: M PAIN 11:30
DX: M70.62 Trochanteric bursitis, left hip (principal); E11.9 Type 2 diabetes mellitus without complications; I10 Essential (primary) hypertension; E78.00 Pure hypercholesterolemia, unspecified; J45.909 Unspecified asthma, uncomplicated; F17.210 Nicotine dependence, cigarettes, uncomplicated; F95.2 Tourette's disorder; Z79.4 Long term (current) use of insulin; Z79.899 Other long term (current) drug therapy; Z88.8 Allergy status to other drugs, medicaments and biological substances; Z91.041 Radiographic dye allergy status
CPT/HCPCS: J3301

== ENCOUNTER → 2017-05-14 | Outpatient (CLI) | payer MEDICAID ==
[~2017-05-14] MED LIST changes: -BUPIVACAINE HCL 0.25% 30 ML VIAL As Ordered; -ISOVUE-M 300 61% 15ML VIAL (Q9967) As Ordered; -LIDOCAINE 1% SDV INJ 30 ML VIAL As Ordered; +METHACHOLINE KIT (J7674) INH; -TRIAMCINOLONE ACETONIDE SUSP 40 MG/ML VIAL (J3301) As Ordered; -diazePAM 5 MG TAB As Ordered; -oxyCODONE 5MG TAB As Ordered
== END ==
LOC: M CARPUL 08:00
DX: J45.909 Unspecified asthma, uncomplicated (principal)
CPT/HCPCS: J7674

== ENCOUNTER → 2017-06-19 | Outpatient (REF) | payer MEDICAID ==
[2017-06-19 19:17] LABS: ESTIMATED AVERAGE GLUCOSE 143 MG/DL (60-110); HEMOGLOBIN A1c 6.6 %
== END ==
LOC: M SFHCPLAZ 15:37
DX: E11.42 Type 2 diabetes mellitus with diabetic polyneuropathy (principal)

== ENCOUNTER → 2017-08-21 | Outpatient (REF) | payer MEDICAID ==
[2017-08-21 12:09] LABS: TOTAL 25(OH) VITAMIN D 33.9 NG/ML (30.0-100.0)
[2017-08-21 12:16] LABS: ALBUMIN 3.2 GM/DL (3.2-5.2); ALBUMIN/GLOBULIN RATIO 0.94 (1.00-1.93); ALKALINE PHOSPHATASE 95 U/L (45-117); ALT/SGPT 27 U/L (12-78); ANION GAP 9 MEQ/L (8-16); AST/SGOT 18 U/L (7-37); BILIRUBIN,TOTAL 0.3 MG/DL (0.2-1.0); BLOOD UREA NITROGEN 6 MG/DL (7-18); CALCIUM LEVEL 8.8 MG/DL (8.5-10.1); CARBON DIOXIDE LEVEL 27 MEQ/L (21-32); CHLORIDE LEVEL 107 MEQ/L (98-107); CHOLESTEROL LEVEL 169 MG/DL (<200); CREATININE FOR GFR 0.62 MG/DL (0.55-1.30); GLOMERULAR FILTRATION RATE > 60.0 (>60); GLUCOSE, FASTING 69 MG/DL (70-100); HDL CHOLESTEROL 43 MG/DL (>40); LDL CHOLESTEROL 101.8 MG/DL (<100); NON-HDL-C 126 MG/DL; POTASSIUM SERUM 4.1 MEQ/L (3.5-5.1); SODIUM LEVEL 143 MEQ/L (136-145); TOTAL PROTEIN 6.6 GM/DL (6.4-8.2); TRIGLYCERIDES LEVEL 121 MG/DL (<150)
[2017-08-21 13:45] LABS: ESTIMATED AVERAGE GLUCOSE 157 MG/DL (60-110); HEMOGLOBIN A1c 7.1 %
== END ==
LOC: M SFHCPLAZ 08:36
DX: E11.42 Type 2 diabetes mellitus with diabetic polyneuropathy (principal); E55.9 Vitamin D deficiency, unspecified; E78.2 Mixed hyperlipidemia

== ENCOUNTER 2017-11-07 08:26 | Emergency (ER) | payer MEDICAID ==
[2017-11-07 10:07] LABS: HEMATOCRIT 41.4 % (36.0-47.0); HEMOGLOBIN 13.3 g/dl (12.0-15.5); MEAN CORPUSCULAR HEMOGLOBIN 25.5 pg (27.0-33.0); MEAN CORPUSCULAR HGB CONC 32.1 g/dl (32.0-36.5); MEAN CORPUSCULAR VOLUME 79.5 fl (80.0-96.0); PLATELET COUNT, AUTOMATED 344 10^3/uL (150-450); RED BLOOD COUNT 5.21 10^6/uL (4.00-5.40); RED CELL DISTRIBUTION WIDTH 14.8 % (11.5-14.5); WHITE BLOOD COUNT 8.4 10^3/uL (4.0-10.0)
[2017-11-07 10:37] LABS: CONTROL LINE HCG INT CTR LINE PRESENT; HCG, SERUM QUALITATIVE NEGATIVE (NEGATIVE)
[2017-11-07] MEDS ORDERED: NORCO, ANEXSIA 5/325MG TABLET (HYDROcodone/ACETAMINOPHEN) PO (12:00)
== END 2017-11-07 12:02 | disposition home or self-care (01) ==
LOC: M ED 08:26
DX: N92.1 Excessive and frequent menstruation with irregular cycle (principal); R93.8 Abnormal findings on diagnostic imaging of other specified body structures; E11.9 Type 2 diabetes mellitus without complications; I10 Essential (primary) hypertension; E78.5 Hyperlipidemia, unspecified; E66.9 Obesity, unspecified; M19.90 Unspecified osteoarthritis, unspecified site; F32.9 Major depressive disorder, single episode, unspecified; F41.9 Anxiety disorder, unspecified; Z72.0 Tobacco use; Z79.4 Long term (current) use of insulin; Z79.899 Other long term (current) drug therapy; Z88.6 Allergy status to analgesic agent; Z91.018 Allergy to other foods; Z91.041 Radiographic dye allergy status
CPT/HCPCS: 76856

== ENCOUNTER 2018-02-27 19:23 | Emergency (ER) | payer MEDICAID ==
[~2018-02-27] VITALS: Ht 147.3 cm; Wt 101.2 kg
[~2018-02-27 19:23] MED LIST changes: +ALBU17IN INH; +ANAF25CA; +BUSP10TA PO; +CELE10TA; +CITA20TA4 PO; +COMBAER6; +DEPA250T32 PO; +GLYB25TA PO; +GLYB5TA GT; +HYDR50TA70; +INSULADS INJ; +JANU100T PO; +LIPI10TA PO; +LISI2.5T5 PO; +LYRI150C PO; +METF10004 PO; +METF500T4 PO; -METHACHOLINE KIT (J7674) INH; +NEUR300C PO; +NEUR600T PO; +NORC1TAB4 PO; +ROBA500T PO; +SYMB16INH INH; +TESS100C PO; +TYLE325T5 PO; +VITA400T15 PO
[2018-02-27] MEDS ORDERED: GENT3OPD OP (19:52)
[2018-02-27 20:26] VITALS: BP 132/81
== END 2018-02-27 20:34 | disposition home or self-care (01) ==
LOC: M ED 19:23
DX: H10.33 Unspecified acute conjunctivitis, bilateral (principal); Z91.018 Allergy to other foods; Z88.6 Allergy status to analgesic agent; Z91.041 Radiographic dye allergy status; Z79.899 Other long term (current) drug therapy; Z79.4 Long term (current) use of insulin; Z79.51 Long term (current) use of inhaled steroids

== ENCOUNTER → 2018-03-12 | Outpatient (REF) | payer MEDICAID ==
[~2018-03-12] MED LIST changes: +GENT3OPD OP
[2018-03-12 14:02] LABS: ALBUMIN 3.5 GM/DL (3.2-5.2); ALT/SGPT 34 U/L (12-78); BILIRUBIN,TOTAL 0.3 MG/DL (0.2-1.0); BLOOD UREA NITROGEN 9 MG/DL (7-18); CALCIUM LEVEL 9.2 MG/DL (8.5-10.1); CARBON DIOXIDE LEVEL 23 MEQ/L (21-32); CHLORIDE LEVEL 101 MEQ/L (98-107); CREATININE FOR GFR 0.58 MG/DL (0.55-1.30); GLOMERULAR FILTRATION RATE > 60.0 (>60); GLUCOSE, FASTING 237 MG/DL (70-100); POTASSIUM SERUM 4.3 MEQ/L (3.5-5.1); SODIUM LEVEL 134 MEQ/L (136-145); TOTAL PROTEIN 7.1 GM/DL (6.4-8.2)
[2018-03-12 16:11] LABS: MAU/CREAT RATIO 786.8 MCG/MG (0.0-30.0)
== END ==
LOC: M SFHCPLAZ 11:11
PROVIDERS: ATTEND Nurse Practitioner Adult Health
DX: Z68.42 Body mass index [BMI] 45.0-49.9, adult (principal)

== ENCOUNTER 2018-05-03 11:30 | Emergency (ER) | payer MEDICAID ==
[~2018-05-03] VITALS: Ht 147.3 cm; Wt 102.0 kg
[2018-05-03 11:30] VITALS: BP 130/70
[2018-05-03] MEDS ORDERED: LIDOCAINE W/EPINEPHRINE 1% 20ML VIAL SC ONE (12:15)
== END 2018-05-03 13:11 | disposition home or self-care (01) ==
LOC: M ED 11:30
DX: L02.214 Cutaneous abscess of groin (principal); E11.9 Type 2 diabetes mellitus without complications; J45.909 Unspecified asthma, uncomplicated; Z72.0 Tobacco use; Z79.4 Long term (current) use of insulin; Z79.899 Other long term (current) drug therapy; Z88.8 Allergy status to other drugs, medicaments and biological substances; Z91.018 Allergy to other foods; Z91.041 Radiographic dye allergy status

== ENCOUNTER 2018-05-23 18:46 | Emergency (ER) | payer MEDICAID ==
[~2018-05-23] VITALS: Ht 147.3 cm; Wt 94.5 kg
[~2018-05-23 18:46] MED LIST changes: -CITA20TA4 PO; +CITA20TA6 PO; +GENT0.3S36 OP; -GENT3OPD OP; +LISI-1046 PO; -LISI2.5T5 PO; -NORC1TAB4 PO; +NORC1TAB7 PO
[2018-05-23 21:42] LABS: BASO % 0.3 % (0.0-1.0); EOS # 0.3 10^3/uL (0.0-0.50); EOS % 2.8 % (0.0-3.0); HEMATOCRIT 42.7 % (36.0-47.0); HEMOGLOBIN 13.8 g/dl (12.0-15.5); LYMPH # 2.9 10^3/uL (1.5-4.5); LYMPH % 32.8 % (24.0-44.0); MEAN CORPUSCULAR HEMOGLOBIN 25.7 pg (27.0-33.0); MEAN CORPUSCULAR HGB CONC 32.3 g/dl (32.0-36.5); MEAN CORPUSCULAR VOLUME 79.5 fl (80.0-96.0); MONO # 0.5 10^3/uL (0.0-0.8); MONO % 5.8 % (0.0-5.0); NEUTROPHILS # 5.1 10^3/uL (1.8-7.7); PLATELET COUNT, AUTOMATED 342 10^3/uL (150-450); RED BLOOD COUNT 5.37 10^6/uL (4.00-5.40); WHITE BLOOD COUNT 8.9 10^3/uL (4.0-10.0)
[2018-05-23] MEDS ORDERED: NORCO, ANEXSIA 5/325MG TABLET (HYDROcodone/ACETAMINOPHEN) PO ONE (21:45)
[2018-05-23 21:56] LABS: ALBUMIN 3.2 GM/DL (3.2-5.2); ALT/SGPT 42 U/L (12-78); BILIRUBIN,TOTAL 0.2 MG/DL (0.2-1.0); BLOOD UREA NITROGEN 9 MG/DL (7-18); C REACTIVE PROTEIN QUANTITATIV 1.45 MG/DL (0.00-0.30); CALCIUM LEVEL 8.5 MG/DL (8.5-10.1); CARBON DIOXIDE LEVEL 27 MEQ/L (21-32); CHLORIDE LEVEL 105 MEQ/L (98-107); CREATININE FOR GFR 0.73 MG/DL (0.55-1.30); GLOMERULAR FILTRATION RATE > 60.0 (>60); GLUCOSE, FASTING 308 MG/DL (70-100); POTASSIUM SERUM 4.3 MEQ/L (3.5-5.1); SODIUM LEVEL 138 MEQ/L (136-145); TOTAL PROTEIN 6.7 GM/DL (6.4-8.2)
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
[2018-05-24 00:09] VITALS: BP 134/83
== END 2018-05-24 00:11 | disposition home or self-care (01) ==
LOC: M ED 18:46
DX: S30.1XXA Contusion of abdominal wall, initial encounter (principal); W01.198A Fall on same level from slipping, tripping and stumbling with subsequent striking against other object, initial encounter; Y92.480 Sidewalk as the place of occurrence of the external cause; R16.0 Hepatomegaly, not elsewhere classified; E11.40 Type 2 diabetes mellitus with diabetic neuropathy, unspecified; J45.909 Unspecified asthma, uncomplicated; F44.9 Dissociative and conversion disorder, unspecified; F95.2 Tourette's disorder; F31.9 Bipolar disorder, unspecified; F42.9 Obsessive-compulsive disorder, unspecified; F90.9 Attention-deficit hyperactivity disorder, unspecified type; F17.200 Nicotine dependence, unspecified, uncomplicated; Z91.041 Radiographic dye allergy status; Z88.8 Allergy status to other drugs, medicaments and biological substances; Z91.018 Allergy to other foods; Z79.899 Other long term (current) drug therapy; Z79.4 Long term (current) use of insulin; Z79.51 Long term (current) use of inhaled steroids

== ENCOUNTER 2018-06-16 23:44 | Emergency (ER) | payer MEDICAID ==
[~2018-06-16] VITALS: Ht 147.3 cm; Wt 100.1 kg
[2018-06-17] MEDS ORDERED: TIZA2TA
[2018-06-17] MEDS ORDERED: RANI150T14
[2018-06-17 02:14] LABS: URINE PREG TEST NEGATIVE (NEGATIVE)
[2018-06-17] MEDS ORDERED: FLUCONAZOLE 50MG TABLET PO ONE (04:15)
[2018-06-17 04:26] VITALS: BP 137/80
[2018-06-17 04:32] LABS: CHLAMYDIA DNA AMPLIFICATION NEGATIVE (NEGATIVE); GC DNA AMPLIFICATION NEGATIVE (NEGATIVE)
--- NOTE | 2018-06-17 11:24 | REP ---
REPEAT DICTATION CT ABDOMEN AND PELVIS WITHOUT IV OR ORAL CONTRAST: HISTORY: Left flank pain and hematuria. Preliminary report is provided by [facility]. Comparison CT study May 23, 2018. 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 There is a mild diffuse fatty infiltration of the liver. The liver is enlarged with a craniocaudal span in the midclavicular line of 18.4 cm. No focal liver lesion is seen. There are clips in the gallbladder post cholecystectomy. Spleen is normal in size homogeneous in texture. No pancreatic abnormality is observed. No adrenal lesion is seen. The kidneys show no evidence of hydronephrosis or calculus on either side. No retroperitoneal mass or adenopathy is seen. Small and large intestinal bowel loops are normal. The appendix is surgically absent. The patient status post tubal ligation. There is one tubal clamp in the left adnexa, the other is in the cul-de-sac. No ovarian or uterine abnormality is observed. Urinary bladder is intact. No abdominal wall defect is appreciated. No bony destructive lesion is appreciated. IMPRESSION: Status post cholecystectomy, appendectomy, tubal ligation. Hepatomegaly with fatty infiltration of the liver. Otherwise negative. Electronically Signed by Talha Fitzgerald MD 06/17/2018 11:41 A
== END 2018-06-17 04:33 | disposition home or self-care (01) ==
LOC: M ED 23:44
DX: B37.3 Candidiasis of vulva and vagina (principal); E11.9 Type 2 diabetes mellitus without complications; Z72.0 Tobacco use; R16.0 Hepatomegaly, not elsewhere classified; K76.0 Fatty (change of) liver, not elsewhere classified; Z79.4 Long term (current) use of insulin; Z79.899 Other long term (current) drug therapy; Z88.8 Allergy status to other drugs, medicaments and biological substances; Z91.040 Latex allergy status; Z91.018 Allergy to other foods

== ENCOUNTER → 2018-06-17 | Outpatient (CLI) | payer MEDICAID ==
[~2018-06-17] MED LIST changes: +RANI150T14; +TIZA2TA
[2018-06-17 14:37] LABS: ALBUMIN 3.4 GM/DL (3.2-5.2); ALT/SGPT 34 U/L (12-78); BILIRUBIN,TOTAL 0.6 MG/DL (0.2-1.0); BLOOD UREA NITROGEN 9 MG/DL (7-18); CALCIUM LEVEL 8.4 MG/DL (8.5-10.1); CARBON DIOXIDE LEVEL 26 MEQ/L (21-32); CHLORIDE LEVEL 101 MEQ/L (98-107); CHOLESTEROL LEVEL 228 MG/DL (<200); CREATININE FOR GFR 0.62 MG/DL (0.55-1.30); GLOMERULAR FILTRATION RATE > 60.0 (>60); GLUCOSE, FASTING 268 MG/DL (70-100); HDL CHOLESTEROL 41 MG/DL (>40); LDL CHOLESTEROL 147 MG/DL (<100); NON-HDL-C 187 MG/DL; POTASSIUM SERUM 3.8 MEQ/L (3.5-5.1); SODIUM LEVEL 135 MEQ/L (136-145); THYROID STIMULATING HORMONE 0.701 uIU/ML (0.358-3.740); TOTAL PROTEIN 6.6 GM/DL (6.4-8.2); TRIGLYCERIDES LEVEL 201 MG/DL (<150)
[2018-06-17 15:03] LABS: MAU/CREAT RATIO 416.8 MCG/MG (0.0-30.0)
[2018-06-17 15:29] LABS: HEMOGLOBIN A1c 9.4 %
== END ==
LOC: M LAB 13:03
PROVIDERS: ATTEND Nurse Practitioner Adult Health
DX: E11.42 Type 2 diabetes mellitus with diabetic polyneuropathy (principal); Z68.42 Body mass index [BMI] 45.0-49.9, adult

== ENCOUNTER 2018-10-06 19:36 | Emergency (ER) | payer MEDICAID ==
[~2018-10-06] VITALS: Ht 147.3 cm; Wt 98.8 kg
[2018-10-06 19:36] VITALS: BP 151/88
[2018-10-06] MEDS ORDERED: NAPROXEN 250 MG TAB PO ONE (20:15)
[2018-10-06] MEDS ORDERED: NAPR-837 PO (20:20)
== END 2018-10-06 20:30 | disposition home or self-care (01) ==
LOC: M ED 19:36
DX: G56.01 Carpal tunnel syndrome, right upper limb (principal); Z72.0 Tobacco use; Z79.4 Long term (current) use of insulin; Z79.899 Other long term (current) drug therapy; Z91.018 Allergy to other foods; Z88.8 Allergy status to other drugs, medicaments and biological substances; Z91.041 Radiographic dye allergy status; G62.9 Polyneuropathy, unspecified; E78.00 Pure hypercholesterolemia, unspecified; Z87.59 Personal history of other complications of pregnancy, childbirth and the puerperium; J45.909 Unspecified asthma, uncomplicated; J44.9 Chronic obstructive pulmonary disease, unspecified; K76.0 Fatty (change of) liver, not elsewhere classified; K57.32 Diverticulitis of large intestine without perforation or abscess without bleeding; K21.9 Gastro-esophageal reflux disease without esophagitis; E11.9 Type 2 diabetes mellitus without complications; F95.2 Tourette's disorder; F31.9 Bipolar disorder, unspecified; F60.3 Borderline personality disorder; F42.4 Excoriation (skin-picking) disorder; F90.8 Attention-deficit hyperactivity disorder, other type; F90.9 Attention-deficit hyperactivity disorder, unspecified type

== ENCOUNTER → 2018-10-24 | Outpatient (REF) | payer MEDICAID ==
[~2018-10-24] MED LIST changes: +NAPR-837 PO
[2018-10-24 11:31] LABS: ALBUMIN 3.4 GM/DL (3.2-5.2); ALT/SGPT 32 U/L (12-78); BILIRUBIN,TOTAL 0.2 MG/DL (0.2-1.0); BLOOD UREA NITROGEN 9 MG/DL (7-18); CALCIUM LEVEL 8.8 MG/DL (8.5-10.1); CARBON DIOXIDE LEVEL 26 MEQ/L (21-32); CHLORIDE LEVEL 107 MEQ/L (98-107); CHOLESTEROL LEVEL 169 MG/DL (<200); CHOLESTEROL RISK RATIO 4.023 (<5); CREATININE FOR GFR 0.63 MG/DL (0.55-1.30); GLOMERULAR FILTRATION RATE > 60.0 (>60); GLUCOSE, FASTING 255 MG/DL (70-100); HDL CHOLESTEROL 42 MG/DL (>40); LDL CHOLESTEROL 97 MG/DL (<100); NON-HDL-C 127 MG/DL; POTASSIUM SERUM 4.3 MEQ/L (3.5-5.1); SODIUM LEVEL 139 MEQ/L (136-145); THYROID STIMULATING HORMONE 0.689 uIU/ML (0.358-3.740); TOTAL 25(OH) VITAMIN D 33.8 NG/ML (30.0-100.0); TOTAL PROTEIN 6.1 GM/DL (6.4-8.2); TRIGLYCERIDES LEVEL 149 MG/DL (<150)
[2018-10-24 11:33] LABS: MAU/CREAT RATIO 217.2 MCG/MG (0.0-30.0)
[2018-10-24 12:12] LABS: HEMOGLOBIN A1c 9.9 %
== END ==
LOC: M SFHCPLAZ 09:11
PROVIDERS: ATTEND Nurse Practitioner Adult Health
DX: Z68.42 Body mass index [BMI] 45.0-49.9, adult (principal); E11.42 Type 2 diabetes mellitus with diabetic polyneuropathy; E55.9 Vitamin D deficiency, unspecified

== ENCOUNTER 2018-12-27 21:00 | Emergency (ER) | payer MEDICAID ==
[~2018-12-27] VITALS: Ht 147.3 cm; Wt 96.4 kg
[~2018-12-27 21:00] MED LIST changes: +METF-791 PO; -METF500T4 PO
[2018-12-27 23:48] LABS: CHLAMYDIA DNA AMPLIFICATION NEGATIVE (NEGATIVE); GC DNA AMPLIFICATION NEGATIVE (NEGATIVE)
[2018-12-27 23:59] VITALS: BP 132/74
== END 2018-12-28 00:07 | disposition home or self-care (01) ==
LOC: M ED 21:00
DX: R30.0 Dysuria (principal); N89.8 Other specified noninflammatory disorders of vagina; E11.9 Type 2 diabetes mellitus without complications; K21.9 Gastro-esophageal reflux disease without esophagitis; F41.9 Anxiety disorder, unspecified; F33.9 Major depressive disorder, recurrent, unspecified; G47.00 Insomnia, unspecified; F95.2 Tourette's disorder; Z79.4 Long term (current) use of insulin; Z79.899 Other long term (current) drug therapy; Z87.42 Personal history of other diseases of the female genital tract; Z87.19 Personal history of other diseases of the digestive system; Z98.890 Other specified postprocedural states; Z86.19 Personal history of other infectious and parasitic diseases; Z87.59 Personal history of other complications of pregnancy, childbirth and the puerperium; Z80.41 Family history of malignant neoplasm of ovary; Z84.2 Family history of other diseases of the genitourinary system; Z91.018 Allergy to other foods; Z91.041 Radiographic dye allergy status; Z88.8 Allergy status to other drugs, medicaments and biological substances

== ENCOUNTER → 2019-01-27 | Outpatient (REF) | payer MEDICAID ==
[2019-01-27 18:12] LABS: HEMOGLOBIN A1c 12.1 %
[2019-01-27 18:32] LABS: CREATININE, URINE 19.8 MG/DL; MAU/CREAT RATIO 717.1 MCG/MG (0.0-30.0)
[2019-01-27 20:03] LABS: ALBUMIN 3.3 GM/DL (3.2-5.2); ALT/SGPT 38 U/L (12-78); BILIRUBIN,TOTAL 0.4 MG/DL (0.2-1.0); BLOOD UREA NITROGEN 9 MG/DL (7-18); CALCIUM LEVEL 8.7 MG/DL (8.5-10.1); CARBON DIOXIDE LEVEL 27 MEQ/L (21-32); CHLORIDE LEVEL 99 MEQ/L (98-107); CREATININE FOR GFR 0.83 MG/DL (0.55-1.30); GLOMERULAR FILTRATION RATE > 60.0 (>60); GLUCOSE, FASTING 466 MG/DL (70-100); POTASSIUM SERUM 4.4 MEQ/L (3.5-5.1); SODIUM LEVEL 135 MEQ/L (136-145); TOTAL PROTEIN 6.9 GM/DL (6.4-8.2)
== END ==
LOC: M SFHCPLAZ 15:31
PROVIDERS: ATTEND Nurse Practitioner Adult Health
DX: E11.42 Type 2 diabetes mellitus with diabetic polyneuropathy (principal)

== ENCOUNTER 2019-03-11 15:36 | Emergency (ER) | payer MEDICAID ==
[~2019-03-11] VITALS: Ht 147.3 cm; Wt 94.1 kg
[2019-03-11] MEDS ORDERED: AMIT25TA (15:44)
[2019-03-11] MEDS ORDERED: diphenhydrAMINE INJ 50MG/ML VIAL (J1200) IV STA (17:11)
[2019-03-11] MEDS ORDERED: NS 1,000 ML IV ONE (17:15)
[2019-03-11] MEDS ORDERED: METOCLOPRAMIDE INJ 10MG/2ML VIAL (J2765) IV ONE (17:15)
[2019-03-11 18:07] LABS: INFLUENZA A AMPLIFICATION NEGATIVE (NEGATIVE); INFLUENZA B AMPLIFICATION NEGATIVE (NEGATIVE)
[2019-03-11 18:38] LABS: BASO % 0.4 % (0.0-1.0); EOS # 0.2 10^3/uL (0.0-0.5); EOS % 2.5 % (0.0-3.0); HEMATOCRIT 44.8 % (36.0-47.0); HEMOGLOBIN 13.9 g/dl (12.0-15.5); LYMPH % 37.6 % (24.0-44.0); MEAN CORPUSCULAR HEMOGLOBIN 24.8 pg (27.0-33.0); MEAN CORPUSCULAR VOLUME 79.9 fl (80.0-96.0); MONO # 0.4 10^3/uL (0.0-0.8); MONO % 5.3 % (0.0-5.0); NEUTROPHILS # 4.3 10^3/uL (1.5-8.5); NEUTROPHILS % 53.8 % (36.0-66.0); PLATELET COUNT, AUTOMATED 311 10^3/uL (150-450); RED BLOOD COUNT 5.61 10^6/uL (4.00-5.40); WHITE BLOOD COUNT 8.1 10^3/uL (4.0-10.0)
[2019-03-11 19:01] LABS: MONO REFLEX EBV COMP NEGATIVE (NEGATIVE)
[2019-03-11 19:02] LABS: C REACTIVE PROTEIN QUANTITATIV 1.31 MG/DL (0.00-0.30)
[2019-03-11] MEDS ORDERED: ACETAMINOPHEN 325 MG TAB PO ONE (19:15)
[2019-03-11 19:24] LABS: ERYTHROCYTE SEDIMENTATION RATE 11 mm/hr (0-20)
[2019-03-11] MEDS ORDERED: methylPREDNISolone INJ 125 MG/2 ML VIAL (J2930) IV ONE (20:00)
[2019-03-11 21:22] VITALS: BP 118/60
--- NOTE | 2019-03-12 07:34 | REP ---
CT BRAIN WITHOUT IV CONTRAST: CT brain performed without IV contrast. Ventricles are normal in size and position. There is no midline shift or mass effect. Murcia-white differentiation is well maintained. There is no acute intracranial hemorrhage. There is no extra-axial fluid collection. Bone window examination is unremarkable. IMPRESSION: Negative noncontrast CT brain. Preliminary report provided by [facility] at the time of the exam. Electronically Signed by Ellis Murcia MD 03/12/2019 05:34 P
[2019-03-13 14:21] LABS: EBV AB TO NUCLEAR ANTIGEN <18.0 U/mL (0.0-17.9); EBV VIRAL CAPSID AG IgM <36.0 U/mL (0.0-35.9)
== END 2019-03-11 21:24 | disposition home or self-care (01) ==
LOC: M ED 15:36
DX: R51 Headache (principal); R59.1 Generalized enlarged lymph nodes; I10 Essential (primary) hypertension; E78.5 Hyperlipidemia, unspecified; E11.40 Type 2 diabetes mellitus with diabetic neuropathy, unspecified; J45.909 Unspecified asthma, uncomplicated; J44.9 Chronic obstructive pulmonary disease, unspecified; F17.200 Nicotine dependence, unspecified, uncomplicated; Z91.041 Radiographic dye allergy status; Z91.018 Allergy to other foods; Z88.6 Allergy status to analgesic agent; Z79.899 Other long term (current) drug therapy; Z79.1 Long term (current) use of non-steroidal anti-inflammatories (NSAID); Z79.4 Long term (current) use of insulin; Z79.52 Long term (current) use of systemic steroids
CPT/HCPCS: 70450; 80047; 84702; 85025; 85652; 86140; 86308; 86664; 86665; 87502; 96361; 96374; 96375; 99284; J1200; J2765; J2930

== ENCOUNTER → 2019-03-14 | Outpatient (CLI) | payer MEDICAID ==
[~2019-03-14] MED LIST changes: +AMIT25TA
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
== END ==
LOC: M PAIN 14:00
PROVIDERS: ATTEND Anesthesiology
DX: M25.531 Pain in right wrist (principal); G89.29 Other chronic pain; M54.2 Cervicalgia; M79.18 Myalgia, other site; E11.40 Type 2 diabetes mellitus with diabetic neuropathy, unspecified; J45.909 Unspecified asthma, uncomplicated; Z86.59 Personal history of other mental and behavioral disorders; E55.9 Vitamin D deficiency, unspecified; F17.210 Nicotine dependence, cigarettes, uncomplicated; Z88.8 Allergy status to other drugs, medicaments and biological substances; Z91.018 Allergy to other foods; Z91.041 Radiographic dye allergy status; E66.01 Morbid (severe) obesity due to excess calories; Z68.41 Body mass index [BMI] 40.0-44.9, adult; Z79.4 Long term (current) use of insulin; Z79.899 Other long term (current) drug therapy

== ENCOUNTER → 2019-04-11 | Outpatient (CLI) | payer MEDICAID ==
[~2019-04-11] MED LIST changes: +SIME40TA PO
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
== END ==
LOC: M PAIN 10:30
PROVIDERS: ATTEND Anesthesiology
DX: M79.18 Myalgia, other site (principal); M54.2 Cervicalgia

== ENCOUNTER 2019-04-15 10:16 | Emergency (ER) | payer MEDICAID ==
[~2019-04-15] VITALS: Ht 147.3 cm; Wt 93.3 kg
[~2019-04-15 10:16] MED LIST changes: -SIME40TA PO
[2019-04-15] MEDS ORDERED: ONDANSETRON 4MG/2ML VIAL (J2405) IV ONE (11:30)
[2019-04-15] MEDS ORDERED: NS 1,000 ML IV ONE (11:30)
[2019-04-15 11:59] LABS: BASO % 0.3 % (0.0-1.0); EOS # 0.4 10^3/uL (0.0-0.5); EOS % 3.4 % (0.0-3.0); HEMATOCRIT 45.1 % (36.0-47.0); HEMOGLOBIN 14.5 g/dl (12.0-15.5); LYMPH # 2.6 10^3/uL (1.5-5.0); MEAN CORPUSCULAR HEMOGLOBIN 25.3 pg (27.0-33.0); MEAN CORPUSCULAR HGB CONC 32.2 g/dl (32.0-36.5); MEAN CORPUSCULAR VOLUME 78.8 fl (80.0-96.0); MONO # 0.7 10^3/uL (0.0-0.8); NEUTROPHILS # 7.5 10^3/uL (1.5-8.5); NEUTROPHILS % 66.8 % (36.0-66.0); PLATELET COUNT, AUTOMATED 379 10^3/uL (150-450); RED BLOOD COUNT 5.72 10^6/uL (4.00-5.40); WHITE BLOOD COUNT 11.2 10^3/uL (4.0-10.0)
[2019-04-15 12:26] LABS: ALBUMIN 3.6 GM/DL (3.2-5.2); BILIRUBIN,DIRECT 0.1 MG/DL (0.0-0.2); BILIRUBIN,TOTAL 0.8 MG/DL (0.2-1.0); TOTAL PROTEIN 7.1 GM/DL (6.4-8.2)
[2019-04-15] MEDS ORDERED: MORPHINE 4 MG/ML 1ML VIAL/SYRINGE (J2270) IV ONE (13:15)
[2019-04-15] MEDS ORDERED: ISOVUE-370 76% 100ML VIAL (Q9967) As Ordered ONE (13:24)
[2019-04-15] MEDS ORDERED: METOCLOPRAMIDE INJ 10MG/2ML VIAL (J2765) IV ONE (14:00)
--- NOTE | 2019-04-15 14:00 | REP ---
Clinical: Abdominal pain and leukocytosis. Technique: Axial contrast enhanced images from the lung bases to the pubic symphysis with coronal and sagittal re-formations using 100 ml Isovue 370 intravenous contrast material. Findings: Lung bases are clear. Visualized heart and pericardium normal. Liver, spleen, pancreas, bilateral adrenal glands and kidneys are normal. Prior cholecystectomy. The enteric system is without obstruction or acute inflammatory process. Evidence of prior appendectomy. Scattered sigmoid diverticula noted without acute diverticulitis. Pelvis demonstrates normal bladder and age-appropriate uterus/adnexa. No ascites. No free air. No adenopathy. Abdominal aorta without aneurysm. Musculoskeletal structures without focal acute abnormality. Impression: No acute abdominopelvic pathology appreciated. Evidence of prior cholecystectomy and appendectomy. Electronically Signed by Alex Daily MD 04/15/2019 01:51 P
[2019-04-15 14:43] VITALS: BP 112/67
[2019-04-15] MEDS ORDERED: SIMETHICONE 80 MG CHEW TAB PO ONE (14:45)
[2019-04-15] MEDS ORDERED: SIME40TA PO (15:18)
== END 2019-04-15 15:46 | disposition home or self-care (01) ==
LOC: M ED 10:16
DX: R10.9 Unspecified abdominal pain (principal); E11.9 Type 2 diabetes mellitus without complications; J44.9 Chronic obstructive pulmonary disease, unspecified; K27.9 Peptic ulcer, site unspecified, unspecified as acute or chronic, without hemorrhage or perforation; F17.210 Nicotine dependence, cigarettes, uncomplicated; Z91.041 Radiographic dye allergy status; Z88.6 Allergy status to analgesic agent; Z91.018 Allergy to other foods; Z79.899 Other long term (current) drug therapy; Z79.1 Long term (current) use of non-steroidal anti-inflammatories (NSAID); Z79.4 Long term (current) use of insulin; Z79.51 Long term (current) use of inhaled steroids
CPT/HCPCS: 74177; 80047; 80076; 81001; 83690; 85025; 96361; 96374; 96375; 99284; J2270; J2405; J2765; Q9967

== ENCOUNTER → 2019-05-05 | Outpatient (CLI) | payer MEDICAID ==
[~2019-05-05] MED LIST changes: +SIME40TA PO
--- NOTE | 2019-05-05 13:21 | REP ---
MRI cervical spine without contrast: Repeat dictation. History: Neck pain. Preliminary report is provided at time of exam by Janice Stone. Technique: Sagittal and axial T1 and T2-weighted scans are acquired in the usual fashion with and without fat saturation. Sequences include spin echo, turbo spin-echo, and STIR imaging sequences. MRI findings: There is slight straightening of the normal cervical lordosis. Cervical vertebral body heights are preserved and alignment is normal. Cervical cord is normal in coarse, caliber and signal intensity on T1 and T2-weighted scans. Craniocervical junction is unremarkable. No extra spinal abnormality is appreciated. Axial and sagittal images at C3-4 demonstrate minimal disc bulging. There is early uncovertebral spurring bilaterally at C3-4. Neural foramina appear adequate. C4-5 level is unremarkable. At C5-6, there is minimal diffuse disc bulging indenting the ventral margin of the thecal sac. The C5-6 disc shows slight narrowing as well. C6-7 and C7-T1 disc levels are unremarkable. Impression: Minimal degenerative disc changes at C3-4 and C5-6 with disc bulging. Early C3-4 uncovertebral spurring. Electronically Signed by Talha Fitzgerald MD 05/05/2019 05:42 P
== END ==
LOC: M RAD 09:34
PROVIDERS: ATTEND Anesthesiology
DX: M54.2 Cervicalgia (principal)

== ENCOUNTER → 2019-05-09 | Outpatient (CLI) | payer MEDICAID ==
[~2019-05-09] MED LIST changes: +BUPIVACAINE HCL 0.25% 30 ML VIAL As Ordered ONE; +TRIAMCINOLONE ACETONIDE SUSP 40 MG/ML VIAL (J3301) As Ordered ONE; +diazePAM 5 MG TAB As Ordered ONE; +oxyCODONE 5MG TAB As Ordered ONE
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
== END ==
LOC: M PAIN 10:15
PROVIDERS: ATTEND Anesthesiology
DX: M79.18 Myalgia, other site (principal)
CPT/HCPCS: 20552; J3301

== ENCOUNTER → 2019-06-23 | Outpatient (REF) | payer MEDICAID ==
[~2019-06-23] MED LIST changes: -BUPIVACAINE HCL 0.25% 30 ML VIAL As Ordered ONE; -TRIAMCINOLONE ACETONIDE SUSP 40 MG/ML VIAL (J3301) As Ordered ONE; -diazePAM 5 MG TAB As Ordered ONE; -oxyCODONE 5MG TAB As Ordered ONE
[2019-06-23 13:53] LABS: HEMOGLOBIN A1c 7.2 %
[2019-06-23 13:57] LABS: ALBUMIN 3.6 GM/DL (3.2-5.2); ALT/SGPT 19 U/L (12-78); BILIRUBIN,TOTAL 0.3 MG/DL (0.2-1.0); BLOOD UREA NITROGEN 9 MG/DL (7-18); CALCIUM LEVEL 9.7 MG/DL (8.5-10.1); CARBON DIOXIDE LEVEL 27 MEQ/L (21-32); CHLORIDE LEVEL 107 MEQ/L (98-107); CHOLESTEROL LEVEL 196 MG/DL (<200); CREATININE FOR GFR 0.64 MG/DL (0.55-1.30); GLOMERULAR FILTRATION RATE > 60.0 (>60); GLUCOSE, FASTING 98 MG/DL (70-100); HDL CHOLESTEROL 47 MG/DL (>40); LDL CHOLESTEROL 118 MG/DL (<100); NON-HDL-C 149 MG/DL; SODIUM LEVEL 139 MEQ/L (136-145); TOTAL PROTEIN 7.1 GM/DL (6.4-8.2); TRIGLYCERIDES LEVEL 153 MG/DL (<150)
== END ==
LOC: M SFHCPLAZ 11:57
PROVIDERS: ATTEND Nurse Practitioner Adult Health
DX: E11.42 Type 2 diabetes mellitus with diabetic polyneuropathy (principal)

== ENCOUNTER → 2019-07-26 | Outpatient (CLI) | payer MEDICAID ==
[~2019-07-26] MED LIST changes: -LISI-1046 PO; +LISI2.5T2 PO; +MAPA325T8 PO; -METF-791 PO; +METF-838 PO; +VENTAER INH; +VICT18IN SC; +VITA500045 PO
== END ==
LOC: M LABSMTC 10:15
PROVIDERS: ATTEND Orthopaedic Surgery Hand Surgery

== ENCOUNTER 2019-08-31 15:19 | Emergency (ER) | payer MEDICAID ==
[~2019-08-31] VITALS: Ht 147.3 cm; Wt 93.5 kg
[2019-08-31 15:20] VITALS: BP 136/82
[2019-08-31] MEDS ORDERED: BACT800T5 PO (15:39)
[2019-08-31] MEDS ORDERED: BACTRIM 160MG/800MG DS TAB PO ONE (15:45)
== END 2019-08-31 15:47 | disposition home or self-care (01) ==
LOC: M ED 15:19
DX: L03.113 Cellulitis of right upper limb (principal); Z91.040 Latex allergy status; Z88.6 Allergy status to analgesic agent; Z88.8 Allergy status to other drugs, medicaments and biological substances; Z91.018 Allergy to other foods; Z79.899 Other long term (current) drug therapy

== ENCOUNTER → 2019-10-11 | Emergency (ER) | payer MEDICAID ==
[~2019-10-11] MED LIST changes: +ALBU83IN NEB; +AUGMENTIN 875 MG TAB As Ordered ONE; +AUGMENTIN 875 MG TAB ONE; +BACT800T5 PO; +CIPR-249 PO; +MELO15TA28 PO; +NAPR-885 PO; +NORCO 5/325MG TABLET (BULK FOR ED) As Ordered ONE; +NORCO 5/325MG TABLET (BULK FOR ED) ONE; +NYST1POW9 TOP; +PROAAER10; +PYRI1TAB5 PO; +SYMB16INH
== END | disposition home or self-care (01) ==
LOC: M ED 23:19
DX: S02.5XXA Fracture of tooth (traumatic), initial encounter for closed fracture (principal); X58.XXXA Exposure to other specified factors, initial encounter; Y92.9 Unspecified place or not applicable; K04.7 Periapical abscess without sinus; E11.9 Type 2 diabetes mellitus without complications; J44.9 Chronic obstructive pulmonary disease, unspecified; Z88.6 Allergy status to analgesic agent; Z88.8 Allergy status to other drugs, medicaments and biological substances; Z79.899 Other long term (current) drug therapy

== ENCOUNTER 2019-10-26 02:23 | Emergency (ER) | payer MEDICAID ==
[~2019-10-26] VITALS: Ht 147.3 cm; Wt 93.6 kg
[~2019-10-26 02:23] MED LIST changes: -ALBU83IN NEB; -AUGMENTIN 875 MG TAB As Ordered ONE; -AUGMENTIN 875 MG TAB ONE; -CIPR-249 PO; -MELO15TA28 PO; -NAPR-885 PO; -NORCO 5/325MG TABLET (BULK FOR ED) As Ordered ONE; -NORCO 5/325MG TABLET (BULK FOR ED) ONE; -NYST1POW9 TOP; -PROAAER10; -PYRI1TAB5 PO; -SYMB16INH
[2019-10-26 02:24] VITALS: BP 141/75
[2019-10-26] MEDS ORDERED: NAPR-885 PO (02:31)
[2019-10-26 02:52] LABS: BILIRUBIN, URINE MANUAL NEGATIVE (NEGATIVE); GLUCOSE, URINE (UA) MANUAL TRACE(50 MG/DL) mg/dL (NEGATIVE); KETONE, URINE MANUAL 1+ mg/dL (NEGATIVE); UROBILINOGEN, URINE MANUAL NORMAL (NORMAL)
[2019-10-26 03:02] LABS: RBC, URINE TNTC /hpf (0-3)
[2019-10-26 03:03] LABS: BACTERIA, URINE MOD AMOUNT; HYALINE CAST, URINE NONE SEEN /lpf (0-1); MUCUS, URINE SMALL AMOUNT (NEGATIVE); SQUAMOUS EPITHELIAL CELL URINE SMALL AMOUNT /hpf (SMALL AMT)
[2019-10-26] MEDS ORDERED: NS 1,000 ML IV ONE (03:15)
[2019-10-26] MEDS ORDERED: KETOROLAC 30 MG/ML 1ML VIAL IV ONE (03:15)
[2019-10-26 03:24] LABS: HEMATOCRIT 39.3 % (36.0-47.0); HEMOGLOBIN 12.2 g/dl (12.0-15.5); MEAN CORPUSCULAR HEMOGLOBIN 24.1 pg (27.0-33.0); MEAN CORPUSCULAR VOLUME 77.7 fl (80.0-96.0); NEUTROPHILS % 61.8 % (36.0-66.0); PLATELET COUNT, AUTOMATED 391 10^3/uL (150-450); RED BLOOD COUNT 5.06 10^6/uL (4.00-5.40); WHITE BLOOD COUNT 11.2 10^3/uL (4.0-10.0)
[2019-10-26 03:25] LABS: BASO % 0.4 % (0.0-1.0); EOS # 0.2 10^3/uL (0.0-0.5); EOS % 2.1 % (0.0-3.0); LYMPH # 3.3 10^3/uL (1.5-5.0); LYMPH % 29.5 % (24.0-44.0); MONO # 0.7 10^3/uL (0.0-0.8); MONO % 5.9 % (0.0-5.0); NEUTROPHILS # 6.9 10^3/uL (1.5-8.5)
[2019-10-26 03:48] LABS: ALBUMIN 3.4 GM/DL (3.2-5.2); ALT/SGPT 20 U/L (12-78); BILIRUBIN,DIRECT < 0.1 MG/DL (0.0-0.2); BILIRUBIN,TOTAL 0.3 MG/DL (0.2-1.0); BLOOD UREA NITROGEN 9 MG/DL (7-18); CALCIUM LEVEL 8.7 MG/DL (8.5-10.1); CARBON DIOXIDE LEVEL 28 MEQ/L (21-32); CHLORIDE LEVEL 107 MEQ/L (98-107); CREATININE FOR GFR 0.62 MG/DL (0.55-1.30); GLOMERULAR FILTRATION RATE > 60.0 (>60); GLUCOSE, FASTING 170 MG/DL (70-100); LIPASE 194 U/L (73-393); POTASSIUM SERUM 3.6 MEQ/L (3.5-5.1); SODIUM LEVEL 142 MEQ/L (136-145); TOTAL PROTEIN 6.8 GM/DL (6.4-8.2)
[2019-10-26] MEDS ORDERED: CIPR-249 PO (04:06)
[2019-10-26] MEDS ORDERED: PYRI1TAB5 PO (04:06)
[2019-10-26] MEDS ORDERED: CIPROFLOXACIN 500MG TABLET PO ONE (04:15)
[2019-10-26] MEDS ORDERED: PHENAZOPYRIDINE 100 MG TAB PO ONE (04:15)
--- NOTE | 2019-11-13 11:01 | REP ---
CT ABDOMEN AND PELVIS WITHOUT CONTRAST HISTORY: Left flank pain. COMPARISON: 04/15/2019. TECHNIQUE: CT abdomen and pelvis performed without the use of intravenous or oral contrast. Sagittal and coronal reconstruction images are performed. FINDINGS: The visualized lung bases are clear. The liver, spleen, adrenals, pancreas, and kidneys are grossly unremarkable. No evidence of hydroureteronephrosis. No renal or ureteral bladder calculus is seen. Urinary bladder is not well distended. No gross intraluminal stones are seen. There is no abdominal aortic aneurysm. I see no adenopathy. I see no free air or free fluid. I see no bowel wall thickening. The patient has had a prior cholecystectomy and appendectomy. Metallic clips are seen in the left adnexa. Small cystic structure involving the right ovary probably represents a dominant follicle in the range of 2 cm in diameter. There is no other evidence of a gross pelvic mass. No gross osseous abnormality is seen. IMPRESSION: No acute abnormalities are detected as discussed in detail above. A preliminary report was provided by [facility] at the time of the exam. [facility]
[2020-01-02] MEDS ORDERED: NYST1POW9 TOP (10:22)
[2020-01-02] MEDS ORDERED: ALBU83IN NEB (10:22)
[2020-01-02] MEDS ORDERED: PROAAER10 (10:22)
[2020-01-02] MEDS ORDERED: SYMB16INH (10:22)
[2020-01-02] MEDS ORDERED: MELO15TA28 PO (10:33)
== END 2019-10-26 04:22 | disposition home or self-care (01) ==
LOC: M ED 02:23
DX: N30.01 Acute cystitis with hematuria (principal); F17.200 Nicotine dependence, unspecified, uncomplicated; Z79.4 Long term (current) use of insulin; Z79.899 Other long term (current) drug therapy; Z91.041 Radiographic dye allergy status; Z91.018 Allergy to other foods; Z88.8 Allergy status to other drugs, medicaments and biological substances
CPT/HCPCS: 74176; 80048; 80076; 81000; 83690; 85025; 87088; 87186; 96361; 96374; 99283; J1885

== ENCOUNTER → 2019-12-31 | Outpatient (CLI) | payer MEDICAID ==
[~2019-12-31] MED LIST changes: +ALBU83IN NEB; +CIPR-249 PO; +MELO15TA28 PO; +NAPR-885 PO; +NYST1POW9 TOP; +PROAAER10; +PYRI1TAB5 PO; +SYMB16INH
== END ==
LOC: M LABSMTC 12:06
PROVIDERS: ATTEND Anesthesiology
DX: Z01.818 Encounter for other preprocedural examination (principal)
CPT/HCPCS: C9803; U0003

== ENCOUNTER → 2020-01-01 | Outpatient (REF) | payer MEDICAID ==
[2020-01-01 14:58] LABS: ALBUMIN 3.7 GM/DL (3.2-5.2); ALT/SGPT 21 U/L (12-78); BILIRUBIN,TOTAL 0.5 MG/DL (0.2-1.0); BLOOD UREA NITROGEN 8 MG/DL (7-18); CALCIUM LEVEL 9.4 MG/DL (8.5-10.1); CARBON DIOXIDE LEVEL 24 MEQ/L (21-32); CHLORIDE LEVEL 104 MEQ/L (98-107); CHOLESTEROL LEVEL 160 MG/DL (<200); CHOLESTEROL RISK RATIO 4.102 (<5); CREATININE FOR GFR 0.58 MG/DL (0.55-1.30); GLOMERULAR FILTRATION RATE > 60.0 (>60); GLUCOSE, FASTING 137 MG/DL (70-100); HDL CHOLESTEROL 39 MG/DL (>40); LDL CHOLESTEROL 94 MG/DL (<100); NON-HDL-C 121 MG/DL; POTASSIUM SERUM 4.2 MEQ/L (3.5-5.1); SODIUM LEVEL 137 MEQ/L (136-145); THYROID STIMULATING HORMONE 0.559 uIU/ML (0.358-3.740); TOTAL 25(OH) VITAMIN D 28.7 NG/ML (30.0-100.0); TOTAL PROTEIN 7.4 GM/DL (6.4-8.2); TRIGLYCERIDES LEVEL 136 MG/DL (<150)
[2020-01-01 15:16] LABS: HEMOGLOBIN A1c 9.2 %
[2020-01-01 15:19] LABS: MAU/CREAT RATIO 320.7 MCG/MG (0.0-30.0)
== END ==
LOC: M SFHCPLAZ 11:28
PROVIDERS: ATTEND Nurse Practitioner Adult Health
DX: E11.42 Type 2 diabetes mellitus with diabetic polyneuropathy (principal); E55.9 Vitamin D deficiency, unspecified; Z13.29 Encounter for screening for other suspected endocrine disorder

== ENCOUNTER 2020-01-05 06:00 | Day surgery (SDC) | payer MEDICAID ==
[~2020-01-05] VITALS: Ht 147.3 cm; Wt 93.3 kg
[2020-01-05] MEDS ORDERED: ALBUTEROL SULFATE 2.5 MG/0.5 ML INH NEB SOLN As Ordered ONE (07:09)
[2020-01-05] MEDS ORDERED: propofoL 200 MG/20 ML VIAL As Ordered ONE ×2 (07:15→08:06)
[2020-01-05] MEDS ORDERED: LIDOCAINE 2% 100MG/5ML SDV (FOR ANES.) As Ordered ONE (07:15)
[2020-01-05] MEDS ORDERED: dexameTHASONE 4 MG/ML 1ML VIAL (J1100 PER 1MG) As Ordered ONE (07:15)
[2020-01-05] MEDS ORDERED: ROCURONIUM BROMIDE 50 MG/5 ML VIAL As Ordered ONE (07:15)
[2020-01-05] MEDS ORDERED: ONDANSETRON 4MG/2ML VIAL As Ordered ONE (07:15)
[2020-01-05] MEDS ORDERED: fentaNYL 100 MCG/2 ML INJECTION (J3010) As Ordered ONE (07:16)
[2020-01-05] MEDS ORDERED: MIDAZOLAM INJ 2MG/2ML VIAL (J2250 PER 1MG) As Ordered ONE (07:17)
[2020-01-05] MEDS ORDERED: ALBUTEROL SULFATE 2.5 MG/0.5 ML INH NEB SOLN INH ONE (07:30)
[2020-01-05] MEDS ORDERED: LIDOCAINE W/EPINEPHRINE 1% 20ML VIAL SC ONE (07:57)
[2020-01-05] MEDS ORDERED: SUGAMMADEX SODIUM 500 MG/5 ML VIAL (BRIDION) As Ordered ONE (07:59)
[2020-01-05] MEDS ORDERED: LACRILUBE (AKWA TEARS) OPHTH OINT 3.5 GM As Ordered ONE (08:07)
[2020-01-05] MEDS ORDERED: LR 1,000 ML IV SCH ×2 (08:45)
[2020-01-05] MEDS ORDERED: fentaNYL 100 MCG/2 ML INJECTION (J3010) IV PRN (08:45)
[2020-01-05] MEDS ORDERED: METOCLOPRAMIDE INJ 10MG/2ML VIAL (J2765 PER 1) IV PRN (08:45)
[2020-01-05] MEDS ORDERED: ONDANSETRON 4MG/2ML VIAL IV PRN (08:45)
[2020-01-05] MEDS ORDERED: PERCOCET 5MG/325MG TAB PO PRN (08:45)
[2020-01-05 10:10] VITALS: BP 114/72
--- NOTE | 2020-01-06 14:56 | RO ---
DATE OF OPERATION: 01/05/2020 PREOPERATIVE DIAGNOSIS: Nonrestorable teeth. POSTOPERATIVE DIAGNOSIS: Nonrestorable teeth. PROCEDURE: Extraction of teeth 2 and 19. SURGEON: Ben Williamson DMD TELECOMMUNICATIONS REPAIRER: ESTIMATED BLOOD LOSS: 5 mL. COMPLICATIONS: None. ANESTHESIA: General. SPECIMENS: Teeth. DESCRIPTION OF PROCEDURE: MTDD
== END 2020-01-05 10:10 | disposition home or self-care (01) ==
LOC: M SDC 06:00
PROVIDERS: ATTEND Dentist Oral and Maxillofacial Surgery
DX: K02.9 Dental caries, unspecified (principal); E11.9 Type 2 diabetes mellitus without complications; K21.9 Gastro-esophageal reflux disease without esophagitis; R19.7 Diarrhea, unspecified; K57.92 Diverticulitis of intestine, part unspecified, without perforation or abscess without bleeding; Z91.041 Radiographic dye allergy status; Z88.8 Allergy status to other drugs, medicaments and biological substances; F17.218 Nicotine dependence, cigarettes, with other nicotine-induced disorders; G43.909 Migraine, unspecified, not intractable, without status migrainosus; F43.10 Post-traumatic stress disorder, unspecified; F31.9 Bipolar disorder, unspecified; F41.9 Anxiety disorder, unspecified; F32.9 Major depressive disorder, single episode, unspecified; Z79.4 Long term (current) use of insulin; Z79.899 Other long term (current) drug therapy; J44.9 Chronic obstructive pulmonary disease, unspecified
CPT/HCPCS: 88300; D7210; D9223; J1100; J2250; J2405; J3010

== ENCOUNTER → 2020-06-30 | Outpatient (CLI) | payer MEDICAID ==
[~2020-06-30] MED LIST changes: -AMIT25TA; +AMIT25TA17; +GLYB2.5T7 PO; -GLYB25TA PO; -GLYB5TA GT; +GLYB5TAB6 GT; -SIME40TA PO; +SIME80CH6 PO
[2020-06-30 10:59] LABS: HEMOGLOBIN A1c 8.8 %
[2020-06-30 11:16] LABS: ALBUMIN 3.5 GM/DL (3.2-5.2); ALT/SGPT 21 U/L (12-78); BILIRUBIN,TOTAL 0.4 MG/DL (0.2-1.0); BLOOD UREA NITROGEN 11 MG/DL (7-18); CALCIUM LEVEL 9.2 MG/DL (8.5-10.1); CARBON DIOXIDE LEVEL 25 MEQ/L (21-32); CHLORIDE LEVEL 105 MEQ/L (98-107); CHOLESTEROL LEVEL 190 MG/DL (<200); CHOLESTEROL RISK RATIO 3.958 (<5); CREATININE FOR GFR 0.55 MG/DL (0.55-1.30); GLOMERULAR FILTRATION RATE > 60.0 (>60); GLUCOSE, FASTING 206 MG/DL (70-100); HDL CHOLESTEROL 48 MG/DL (>40); LDL CHOLESTEROL 107 MG/DL (<100); NON-HDL-C 142 MG/DL; POTASSIUM SERUM 4.4 MEQ/L (3.5-5.1); SODIUM LEVEL 136 MEQ/L (136-145); TOTAL PROTEIN 6.9 GM/DL (6.4-8.2); TRIGLYCERIDES LEVEL 177 MG/DL (<150)
[2020-06-30 11:20] LABS: TOTAL 25(OH) VITAMIN D 17.7 NG/ML (30.0-100.0)
[2020-06-30 11:53] LABS: MAU/CREAT RATIO 477.9 MCG/MG (0.0-30.0)
== END ==
LOC: M PLALAB 09:04
PROVIDERS: ATTEND Nurse Practitioner Adult Health
DX: E11.42 Type 2 diabetes mellitus with diabetic polyneuropathy (principal); E78.2 Mixed hyperlipidemia

== ENCOUNTER 2020-08-26 17:29 | Emergency (ER) | payer MEDICAID ==
[~2020-08-26] VITALS: Ht 147.3 cm; Wt 101.1 kg
[2020-08-26] MEDS ORDERED: ONDANSETRON 4MG/2ML VIAL IV ONE (18:05)
--- NOTE | 2020-08-26 18:37 | REP ---
INDICATION: BLE swelling; r/o DVT COMPARISON: None. TECHNIQUE: [place] scale and color Doppler evaluation using linear high frequency transducer. FINDINGS: Ultrasound examination of the right and left lower extremity deep venous structures from the common femoral vein through the calf/ankle to include the peroneal, and tibial veins demonstrates normal compressibility flow and wave patterns in response to respiration and augmentation. There is no evidence for deep venous thrombosis. IMPRESSION: No evidence for deep venous thrombosis. <Electronically signed by Alex Daily > 08/26/20 [id number]
[2020-08-26 18:48] LABS: BASO % 0.4 % (0.0-1.0); EOS # 0.2 10^3/uL (0.0-0.5); HEMATOCRIT 38.2 % (36.0-47.0); HEMOGLOBIN 11.4 g/dl (12.0-15.5); LYMPH # 2.3 10^3/uL (1.5-5.0); LYMPH % 30.4 % (24.0-44.0); MEAN CORPUSCULAR HEMOGLOBIN 22.7 pg (27.0-33.0); MEAN CORPUSCULAR HGB CONC 29.8 g/dl (32.0-36.5); MEAN CORPUSCULAR VOLUME 76.1 fl (80.0-96.0); MONO # 0.5 10^3/uL (0.0-0.8); NEUTROPHILS # 4.5 10^3/uL (1.5-8.5); NEUTROPHILS % 59.8 % (36.0-66.0); PLATELET COUNT, AUTOMATED 346 10^3/uL (150-450); RED BLOOD COUNT 5.02 10^6/uL (4.00-5.40); WHITE BLOOD COUNT 7.6 10^3/uL (4.0-10.0)
[2020-08-26] MEDS ORDERED: ISOVUE-370 76% 100ML VIAL As Ordered ONE (19:06)
[2020-08-26 19:20] LABS: ALT/SGPT 20 U/L (12-78); BILIRUBIN,DIRECT < 0.1 MG/DL (0.0-0.2); BILIRUBIN,TOTAL 0.2 MG/DL (0.2-1.0); CK-MB VALUE MASS < 1.0 NG/ML (<3.6); CPK CREATINE PHOSPHOKINASE 114 U/L (26-192); MB/CK RELATIVE INDEX 0.88 (< OR =4); NT-PRO BNP 87 PG/ML (<125); TOTAL PROTEIN 6.2 GM/DL (6.4-8.2); TROPONIN I < 0.02 NG/ML (< 0.10)
--- NOTE | 2020-08-26 20:38 | REP ---
INDICATION: DYSPNEA/COUGH COMPARISON: 11/05/2016 TECHNIQUE: Portable AP view of the chest FINDINGS: The mediastinum and cardiac silhouette are stable and within normal limits for portable technique. The lung vidal are clear without acute consolidation, effusion, or pneumothorax. Skeletal structures are intact. IMPRESSION: No acute cardiopulmonary process appreciated. <Electronically signed by Alex Daily > 08/26/20 [id number]
[2020-08-26 22:30] VITALS: BP 131/82
--- NOTE | 2020-08-27 05:40 | ECGEPIP ---
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
--- NOTE | 2020-08-27 08:36 | REP ---
INDICATION: SOB; leg swelling; r/o PE. Repeat dictation. Preliminary report is provided at the time of the exam by geremias REECE. COMPARISON: Comparison CT study is from November 05, 2016.. TECHNIQUE: Contrast dose: 75 ML of Isovue [address] technique: Helical scanning is acquired and overlapping 1.5 mm and contiguous 3 mm axial images are reformatted. In addition, maximum intensity projection and multiplanar re-formation images are generated in sagittal and coronal imaging projections. FINDINGS: There is good opacification in the pulmonary arterial tree. There is no evidence of vessel cut off or filling defect to suggest pulmonary embolus. Homogeneous opacity is seen in the thoracic aorta. There is no evidence of aneurysm or dissection. There is no evidence of pleural or pericardial effusion. No hilar or mediastinal mass or adenopathy is observed. Lung window settings demonstrate no evidence of infiltrate, atelectasis, nodule or mass. In the upper abdomen, there is evidence of diffuse fatty infiltration of the liver unchanged from prior study and moderate in degree. IMPRESSION: No CT evidence of pulmonary embolus. Diffuse fatty infiltration of the liver, moderate in degree. No other significant abnormality. <Electronically signed by Jose Luis Fitzgerald > 08/27/20 [id number]
== END 2020-08-26 23:22 | disposition home or self-care (01) ==
LOC: M ED 17:29
DX: R60.9 Edema, unspecified (principal); R06.00 Dyspnea, unspecified; E11.9 Type 2 diabetes mellitus without complications; J44.9 Chronic obstructive pulmonary disease, unspecified; F33.9 Major depressive disorder, recurrent, unspecified; F41.9 Anxiety disorder, unspecified; F42.9 Obsessive-compulsive disorder, unspecified; F90.9 Attention-deficit hyperactivity disorder, unspecified type; F95.2 Tourette's disorder; Z79.4 Long term (current) use of insulin; Z79.899 Other long term (current) drug therapy; Z88.8 Allergy status to other drugs, medicaments and biological substances; Z91.018 Allergy to other foods; Z91.041 Radiographic dye allergy status; F17.210 Nicotine dependence, cigarettes, uncomplicated
CPT/HCPCS: 71045; 71275; 80047; 80076; 82550; 82553; 83880; 84443; 84702; 85025; 93005; 93041; 93970; 94760; 96374; 99285; J2405; Q9967

== ENCOUNTER → 2020-09-16 | Outpatient (CLI) | payer MEDICAID ==
[2020-09-16 17:34] LABS: HEMOGLOBIN A1c 9.3 %
[2020-09-16 17:35] LABS: ALBUMIN 3.9 GM/DL (3.2-5.2); ALT/SGPT 24 U/L (12-78); BILIRUBIN,TOTAL 0.4 MG/DL (0.2-1.0); BLOOD UREA NITROGEN 10 MG/DL (7-18); CALCIUM LEVEL 8.7 MG/DL (8.5-10.1); CARBON DIOXIDE LEVEL 25 MEQ/L (21-32); CHLORIDE LEVEL 105 MEQ/L (98-107); CREATININE FOR GFR 0.51 MG/DL (0.55-1.30); GLOMERULAR FILTRATION RATE > 60.0 (>60); GLUCOSE, FASTING 142 MG/DL (70-100); POTASSIUM SERUM 4.1 MEQ/L (3.5-5.1); SODIUM LEVEL 136 MEQ/L (136-145); TOTAL PROTEIN 7.2 GM/DL (6.4-8.2)
[2020-09-16 17:48] LABS: CREATININE, URINE 75.5 MG/DL; MAU/CREAT RATIO 271.5 MCG/MG (0.0-30.0)
== END ==
LOC: M PLALAB 15:47
PROVIDERS: ATTEND Nurse Practitioner Adult Health
DX: E11.8 Type 2 diabetes mellitus with unspecified complications (principal)

== ENCOUNTER 2020-11-21 18:05 | Emergency (ER) | payer MEDICAID ==
[~2020-11-21] VITALS: Ht 147.3 cm; Wt 100.5 kg
[~2020-11-21 18:05] MED LIST changes: -LISI2.5T2 PO; +LISI2.5T9 PO
[2020-11-21 18:06] VITALS: BP 124/84
[2020-11-21 21:10] LABS: RSV AMPLIFICATION NEGATIVE (NEGATIVE)
[2020-11-21] MEDS ORDERED: DOXYCYCLINE HYCLATE 100MG TABLET PO ONE (21:40)
[2020-11-21] MEDS ORDERED: BENZONATATE 100MG CAPSULE PO ONE (21:40)
[2020-11-21] MEDS ORDERED: predniSONE 20 MG TAB PO ONE (21:40)
[2020-11-21] MEDS ORDERED: PRED20TA PO (21:43)
[2020-11-21] MEDS ORDERED: BENZ200C70 PO (21:43)
[2020-11-21] MEDS ORDERED: DOXY1CAP62 PO (21:43)
== END 2020-11-21 22:12 | disposition home or self-care (01) ==
LOC: M ED 18:05
DX: J20.9 Acute bronchitis, unspecified (principal); J44.9 Chronic obstructive pulmonary disease, unspecified; J45.909 Unspecified asthma, uncomplicated; E11.9 Type 2 diabetes mellitus without complications; G62.9 Polyneuropathy, unspecified; E78.00 Pure hypercholesterolemia, unspecified; F31.9 Bipolar disorder, unspecified; F41.9 Anxiety disorder, unspecified; F90.9 Attention-deficit hyperactivity disorder, unspecified type; F42.9 Obsessive-compulsive disorder, unspecified; F95.2 Tourette's disorder; K21.9 Gastro-esophageal reflux disease without esophagitis; K76.0 Fatty (change of) liver, not elsewhere classified; Z88.8 Allergy status to other drugs, medicaments and biological substances; Z79.899 Other long term (current) drug therapy; Z79.4 Long term (current) use of insulin; Z91.041 Radiographic dye allergy status
CPT/HCPCS: 87631; 99283; J7512

== ENCOUNTER → 2020-12-08 | Outpatient (CLI) | payer MEDICAID ==
[~2020-12-08] MED LIST changes: +BENZ200C70 PO; +DOXY1CAP62 PO; +PRED20TA PO
[2020-12-08 15:43] LABS: HEMOGLOBIN A1c 9.1 %
[2020-12-08 15:58] LABS: ALBUMIN 3.4 GM/DL (3.2-5.2); ALT/SGPT 39 U/L (12-78); BILIRUBIN,TOTAL 0.5 MG/DL (0.2-1.0); BLOOD UREA NITROGEN 10 MG/DL (7-18); CARBON DIOXIDE LEVEL 25 MEQ/L (21-32); CHLORIDE LEVEL 104 MEQ/L (98-107); CREATININE FOR GFR 0.71 MG/DL (0.55-1.30); GLOMERULAR FILTRATION RATE > 60.0 (>60); GLUCOSE, FASTING 136 MG/DL (70-100); POTASSIUM SERUM 4.6 MEQ/L (3.5-5.1); SODIUM LEVEL 135 MEQ/L (136-145); TOTAL PROTEIN 7.2 GM/DL (6.4-8.2)
== END ==
LOC: M PLALAB 12:28
PROVIDERS: ATTEND Nurse Practitioner Adult Health
DX: E11.42 Type 2 diabetes mellitus with diabetic polyneuropathy (principal)

== ENCOUNTER 2021-01-25 13:26 | Emergency (ER) | payer MEDICAID ==
[~2021-01-25] VITALS: Ht 147.3 cm; Wt 101.4 kg
[~2021-01-25 13:26] MED LIST changes: +DOXY-443 PO; -DOXY1CAP62 PO
[2021-01-25] MEDS ORDERED: OZEM2INJ (13:53)
[2021-01-25 14:22] LABS: BASO # 0.1 10^3/uL (0.0-0.2); BASO % 0.5 % (0.0-1.0); EOS # 0.2 10^3/uL (0.0-0.5); EOS % 2.3 % (0.0-3.0); HEMATOCRIT 41.4 % (36.0-47.0); LYMPH # 2.8 10^3/uL (1.5-5.0); LYMPH % 29.2 % (24.0-44.0); MEAN CORPUSCULAR HEMOGLOBIN 23.9 pg (27.0-33.0); MEAN CORPUSCULAR HGB CONC 31.4 g/dl (32.0-36.5); MONO # 0.6 10^3/uL (0.0-0.8); MONO % 6.4 % (2.0-8.0); NEUTROPHILS # 5.9 10^3/uL (1.5-8.5); NEUTROPHILS % 60.9 % (36.0-66.0); PLATELET COUNT, AUTOMATED 418 10^3/uL (150-450); RED BLOOD COUNT 5.45 10^6/uL (4.00-5.40); WHITE BLOOD COUNT 9.7 10^3/uL (4.0-10.0)
[2021-01-25 14:58] LABS: ALBUMIN 3.3 GM/DL (3.2-5.2); ALT/SGPT 28 U/L (12-78); BILIRUBIN,DIRECT 0.1 MG/DL (0.0-0.2); BILIRUBIN,TOTAL 0.5 MG/DL (0.2-1.0); BLOOD UREA NITROGEN 13 MG/DL (7-18); CARBON DIOXIDE LEVEL 27 MEQ/L (21-32); CHLORIDE LEVEL 103 MEQ/L (98-107); CREATININE FOR GFR 0.87 MG/DL (0.55-1.30); GLOMERULAR FILTRATION RATE > 60.0 (>60); GLUCOSE, FASTING 310 MG/DL (70-100); LIPASE 176 U/L (73-393); POTASSIUM SERUM 4.3 MEQ/L (3.5-5.1); SODIUM LEVEL 136 MEQ/L (136-145); TOTAL PROTEIN 6.6 GM/DL (6.4-8.2)
[2021-01-25 14:59] LABS: HCG, SERUM QUALITATIVE NEGATIVE (NEGATIVE)
[2021-01-25 20:06] VITALS: BP 148/81
[2021-01-25] MEDS ORDERED: BACT800T5 PO (20:15)
[2021-01-25] MEDS ORDERED: BACI500O21 TOP (20:15)
[2021-01-25] MEDS ORDERED: MIRA3350 PO (20:15)
[2021-01-25] MEDS ORDERED: COLA100C5 PO (20:15)
[2021-01-25] MEDS ORDERED: MAGNESIUM CITRATE 300 ML BTL PO ONE (20:45)
[2021-01-25] MEDS ORDERED: BISACODYL 10 MG SUPP PR ONE (20:45)
== END 2021-01-25 21:22 | disposition home or self-care (01) ==
LOC: M ED 13:26
DX: K59.00 Constipation, unspecified (principal); R30.0 Dysuria; E11.9 Type 2 diabetes mellitus without complications; Z79.899 Other long term (current) drug therapy; Z79.4 Long term (current) use of insulin; Z88.8 Allergy status to other drugs, medicaments and biological substances; Z91.018 Allergy to other foods; Z91.041 Radiographic dye allergy status; F17.210 Nicotine dependence, cigarettes, uncomplicated

== ENCOUNTER → 2021-01-26 | Outpatient (REF) | payer MEDICAID ==
[~2021-01-26] MED LIST changes: +BACI500O21 TOP; +COLA100C5 PO; +MIRA3350 PO; +OZEM2INJ
== END ==
LOC: M SFHCPLAZ 17:01
PROVIDERS: ATTEND Nurse Practitioner Adult Health
DX: J02.9 Acute pharyngitis, unspecified (principal)

== ENCOUNTER 2021-04-25 11:24 | Emergency (ER) | payer MEDICAID ==
[~2021-04-25] VITALS: Ht 147.3 cm; Wt 99.1 kg
[2021-04-25 12:08] LABS: BILIRUBIN, URINE MANUAL NEGATIVE (NEGATIVE); GLUCOSE, URINE (UA) MANUAL 2+(250 MG/DL) mg/dL (NEGATIVE); KETONE, URINE MANUAL NEGATIVE (NEGATIVE); UROBILINOGEN, URINE MANUAL NORMAL (NORMAL)
[2021-04-25 12:17] LABS: RBC, URINE TNTC /hpf (0-3)
[2021-04-25 12:18] LABS: BACTERIA, URINE MOD AMOUNT; SQUAMOUS EPITHELIAL CELL URINE SMALL AMOUNT /hpf (SMALL AMT); TRANSITIONAL EPI CELLS, URINE MOD AMOUNT /hpf
[2021-04-25] MEDS ORDERED: KETOROLAC 30 MG/ML 1ML VIAL IV ONE (13:30)
[2021-04-25 14:11] LABS: BASO # 0.1 10^3/uL (0.0-0.2); BASO % 0.4 % (0.0-1.0); EOS # 0.2 10^3/uL (0.0-0.5); EOS % 1.3 % (0.0-3.0); HEMATOCRIT 43.9 % (36.0-47.0); HEMOGLOBIN 13.8 g/dl (12.0-15.5); LYMPH % 18.2 % (24.0-44.0); MEAN CORPUSCULAR HEMOGLOBIN 23.8 pg (27.0-33.0); MEAN CORPUSCULAR HGB CONC 31.4 g/dl (32.0-36.5); MEAN CORPUSCULAR VOLUME 75.8 fl (80.0-96.0); MONO # 0.8 10^3/uL (0.0-0.8); MONO % 4.9 % (2.0-8.0); NEUTROPHILS # 12.3 10^3/uL (1.5-8.5); NEUTROPHILS % 74.8 % (36.0-66.0); PLATELET COUNT, AUTOMATED 412 10^3/uL (150-450); RED BLOOD COUNT 5.79 10^6/uL (4.00-5.40); WHITE BLOOD COUNT 16.5 10^3/uL (4.0-10.0)
[2021-04-25] MEDS ORDERED: CIPR-249 PO (14:54)
[2021-04-25] MEDS ORDERED: FLUC150T9 PO (14:54)
[2021-04-25] MEDS ORDERED: CIPROFLOXACIN 500MG TABLET PO ONE (14:55)
[2021-04-25] MEDS ORDERED: PYRI1TAB5 PO (15:13)
[2021-04-25 15:15] VITALS: BP 138/74
== END 2021-04-25 15:17 | disposition home or self-care (01) ==
LOC: M ED 11:24
DX: N39.0 Urinary tract infection, site not specified (principal); E11.9 Type 2 diabetes mellitus without complications; F31.9 Bipolar disorder, unspecified; F41.9 Anxiety disorder, unspecified; F17.200 Nicotine dependence, unspecified, uncomplicated; Z98.51 Tubal ligation status; Z88.6 Allergy status to analgesic agent; Z88.8 Allergy status to other drugs, medicaments and biological substances; Z79.899 Other long term (current) drug therapy; Z79.4 Long term (current) use of insulin
CPT/HCPCS: 74176; 80047; 81000; 81015; 84702; 85025; 87088; 87186; 96374; 99284; J1885

== ENCOUNTER → 2021-05-10 | Outpatient (CLI) | payer MEDICAID ==
[~2021-05-10] MED LIST changes: +FLUC150T9 PO
[2021-05-10 15:56] LABS: ALBUMIN 3.4 GM/DL (3.2-5.2); ALT/SGPT 32 U/L (12-78); BILIRUBIN,TOTAL 0.5 MG/DL (0.2-1.0); BLOOD UREA NITROGEN 9 MG/DL (7-18); CARBON DIOXIDE LEVEL 27 MEQ/L (21-32); CHLORIDE LEVEL 103 MEQ/L (98-107); CHOLESTEROL LEVEL 226 MG/DL (<200); CHOLESTEROL RISK RATIO 4.913 (<5); CREATININE FOR GFR 0.69 MG/DL (0.55-1.30); GLOMERULAR FILTRATION RATE > 60.0 (>60); GLUCOSE, FASTING 267 MG/DL (70-100); HDL CHOLESTEROL 46 MG/DL (>40); LDL CHOLESTEROL 132 MG/DL (<100); NON-HDL-C 180 MG/DL; POTASSIUM SERUM 4.5 MEQ/L (3.5-5.1); SODIUM LEVEL 134 MEQ/L (136-145); TOTAL 25(OH) VITAMIN D 13.7 NG/ML (30.0-100.0); TOTAL PROTEIN 7.1 GM/DL (6.4-8.2); TRIGLYCERIDES LEVEL 240 MG/DL (<150)
[2021-05-10 16:27] LABS: MAU/CREAT RATIO 447.4 MCG/MG (0.0-30.0)
[2021-05-10 16:53] LABS: HEMOGLOBIN A1c 10.4 %
== END ==
LOC: M LAB 14:22
PROVIDERS: ATTEND Nurse Practitioner Adult Health
DX: E11.42 Type 2 diabetes mellitus with diabetic polyneuropathy (principal)

== ENCOUNTER → 2021-08-05 | Outpatient (REF) | payer MEDICAID ==
[~2021-08-05] MED LIST changes: +ALBU2.5V10 NEB; -ALBU83IN NEB
== END ==
LOC: M SFHCPLAZ 13:16
PROVIDERS: ATTEND Physician Assistant
DX: N76.0 Acute vaginitis (principal)

== ENCOUNTER 2021-08-22 00:46 | Emergency (ER) | payer MEDICAID ==
[~2021-08-22] VITALS: Ht 147.3 cm; Wt 97.3 kg
[2021-08-22] MEDS ORDERED: ACETAMINOPHEN 500 MG TAB PO ONE (06:35)
[2021-08-22 07:12] LABS: BASO % 0.5 % (0.0-1.0); EOS # 0.3 10^3/uL (0.0-0.5); EOS % 3.7 % (0.0-3.0); HEMATOCRIT 41.2 % (36.0-47.0); HEMOGLOBIN 12.7 g/dl (12.0-15.5); LYMPH # 3.2 10^3/uL (1.5-5.0); MEAN CORPUSCULAR HEMOGLOBIN 24.6 pg (27.0-33.0); MEAN CORPUSCULAR HGB CONC 30.8 g/dl (32.0-36.5); MEAN CORPUSCULAR VOLUME 79.7 fl (80.0-96.0); MONO # 0.6 10^3/uL (0.0-0.8); MONO % 7.4 % (2.0-8.0); NEUTROPHILS # 3.6 10^3/uL (1.5-8.5); PLATELET COUNT, AUTOMATED 341 10^3/uL (150-450); RED BLOOD COUNT 5.17 10^6/uL (4.00-5.40); WHITE BLOOD COUNT 7.8 10^3/uL (4.0-10.0)
[2021-08-22 07:33] LABS: BLOOD UREA NITROGEN 16 MG/DL (7-18); CALCIUM LEVEL 9.2 MG/DL (8.5-10.1); CARBON DIOXIDE LEVEL 25 MEQ/L (21-32); CHLORIDE LEVEL 106 MEQ/L (98-107); CREATININE FOR GFR 0.58 MG/DL (0.55-1.30); GLOMERULAR FILTRATION RATE > 60.0 (>60); GLUCOSE, FASTING 271 MG/DL (70-100); NT-PRO BNP 18 PG/ML (<125); POTASSIUM SERUM 4.5 MEQ/L (3.5-5.1); SODIUM LEVEL 138 MEQ/L (136-145)
[2021-08-22] MEDS ORDERED: LIDO5DIS41 TD (08:07)
[2021-08-22 08:57] VITALS: BP 125/74
== END 2021-08-22 08:59 | disposition home or self-care (01) ==
LOC: M ED 00:49
DX: M54.50 Low back pain, unspecified (principal); R60.9 Edema, unspecified; E11.9 Type 2 diabetes mellitus without complications; F31.9 Bipolar disorder, unspecified; F42.9 Obsessive-compulsive disorder, unspecified; F60.3 Borderline personality disorder; F90.9 Attention-deficit hyperactivity disorder, unspecified type; F95.2 Tourette's disorder; Z79.899 Other long term (current) drug therapy; Z79.4 Long term (current) use of insulin; Z88.8 Allergy status to other drugs, medicaments and biological substances; Z91.018 Allergy to other foods; Z91.041 Radiographic dye allergy status; F17.200 Nicotine dependence, unspecified, uncomplicated

== ENCOUNTER → 2021-08-24 | Outpatient (REF) | payer MEDICAID ==
[~2021-08-24] MED LIST changes: +LIDO5DIS41 TD
[2021-08-24 18:19] LABS: APPEARANCE, URINE HAZY (CLEAR); BACTERIA, URINE AUTO NEGATIVE (NEGATIVE); BILIRUBIN, URINE AUTO NEGATIVE (NEGATIVE); BLOOD, URINE BLOOD NEGATIVE (NEGATIVE); COLOR, URINE YELLOW (YELLOW); GLUCOSE, URINE (UA) AUTO 3+ mg/dL (NEGATIVE); KETONE, URINE AUTO TRACE mg/dL (NEGATIVE); LEUKOCYTE ESTERASE, URINE AUTO NEGATIVE (NEGATIVE); MUCUS, URINE SMALL (NEGATIVE); NITRITE, URINE AUTO NEGATIVE (NEGATIVE); PROTEIN, URINE AUTO 2+ mg/dL (NEGATIVE); RBC, URINE AUTO 1 /HPF (0-3); SPECIFIC GRAVITY URINE AUTO 1.027 (1.002-1.035); SQUAMOUS EPITHELIAL CELL UR AU 3 /HPF (0-6); UROBILINOGEN, URINE AUTO 0.2 mg/dL (0.0-2.0); WBC, URINE AUTO 1 /HPF (0-3)
== END ==
LOC: M SMT 15:00
PROVIDERS: ATTEND Nurse Practitioner Women's Health
DX: R32 Unspecified urinary incontinence (principal)

== ENCOUNTER → 2022-10-24 | Outpatient (CLI) | payer MEDICAID ==
[~2022-10-24] MED LIST changes: -AMIT25TA17; +AMIT25TA19; +BACT400T PO; +GABA800T4 PO; +LANTINJ4 SC; +OZEM2INJ SC; +PROAAER10 INH
[2022-10-24 17:51] LABS: MAU/CREAT RATIO 362.3 MCG/MG (0.0-30.0)
[2022-10-24 17:54] LABS: ALBUMIN 3.5 G/DL (3.2-5.2); ALKALINE PHOSPHATASE 87 U/L (46-116); ALT/SGPT 23 U/L (7.0-40); AST/SGOT < 8 U/L (<34); BILIRUBIN,TOTAL 0.6 MG/DL (0.3-1.2); BLOOD UREA NITROGEN 9 MG/DL (9-23); CALCIUM LEVEL 9.2 MG/DL (8.5-10.1); CARBON DIOXIDE LEVEL 27 MMOL/L (20-31); CHLORIDE LEVEL 102 MMOL/L (98-107); CHOLESTEROL LEVEL 231 MG/DL (<200); CREATININE FOR GFR 0.51 MG/DL (0.55-1.30); GLOMERULAR FILTRATION RATE > 60.0 (>60); GLUCOSE, FASTING 298 MG/DL (60-100); HDL CHOLESTEROL 51.3 MG/DL (>40); LDL CHOLESTEROL 137.1 MG/DL (<100); NON-HDL-C 179.7 MG/DL; POTASSIUM SERUM 4.5 MMOL/L (3.5-5.1); SODIUM LEVEL 136 MMOL/L (136-145); THYROID STIMULATING HORMONE 0.518 uIU/ML (0.55-4.78); TOTAL 25(OH) VITAMIN D 24.5 NG/ML (20.0-100.0); TOTAL PROTEIN 6.9 G/DL (5.7-8.2); TRIGLYCERIDES LEVEL 213 MG/DL (<150)
[2022-10-24 18:01] LABS: HEMOGLOBIN A1c 11.2 % (4.0-6.0)
== END ==
LOC: M PLALAB 15:45
PROVIDERS: ATTEND Nurse Practitioner Adult Health
DX: E11.42 Type 2 diabetes mellitus with diabetic polyneuropathy (principal); Z13.29 Encounter for screening for other suspected endocrine disorder; E55.9 Vitamin D deficiency, unspecified

== ENCOUNTER → 2023-02-14 | Outpatient (CLI) | payer MEDICAID ==
[2023-02-14 16:21] LABS: HEMOGLOBIN A1c 11.7 % (4.0-6.0)
[2023-02-14 16:26] LABS: ALBUMIN 3.4 G/DL (3.2-5.2); ALKALINE PHOSPHATASE 94 U/L (46-116); ALT/SGPT 20 U/L (7.0-40); AST/SGOT < 8 U/L (<34); BILIRUBIN,TOTAL 0.4 MG/DL (0.3-1.2); BLOOD UREA NITROGEN 10 MG/DL (9-23); CALCIUM LEVEL 9.9 MG/DL (8.5-10.1); CARBON DIOXIDE LEVEL 27 MMOL/L (20-31); CHLORIDE LEVEL 105 MMOL/L (98-107); CHOLESTEROL LEVEL 230 MG/DL (<200); CHOLESTEROL RISK RATIO 3.76 (<5); GLOMERULAR FILTRATION RATE > 60.0 (>60); GLUCOSE, FASTING 197 MG/DL (60-100); HDL CHOLESTEROL 61.1 MG/DL (>40); LDL CHOLESTEROL 135.9 MG/DL (<100); NON-HDL-C 168.9 MG/DL; POTASSIUM SERUM 4.4 MMOL/L (3.5-5.1); SODIUM LEVEL 135 MMOL/L (136-145); TOTAL PROTEIN 6.7 G/DL (5.7-8.2); TRIGLYCERIDES LEVEL 165 MG/DL (<150)
[2023-02-14 16:28] LABS: TOTAL 25(OH) VITAMIN D 23.5 NG/ML (20.0-100.0)
[2023-02-14 16:29] LABS: THYROID STIMULATING HORMONE 0.927 uIU/ML (0.55-4.78)
== END ==
LOC: M PLALAB 14:04
PROVIDERS: ATTEND Nurse Practitioner Adult Health
DX: E11.42 Type 2 diabetes mellitus with diabetic polyneuropathy (principal); E78.2 Mixed hyperlipidemia; E55.9 Vitamin D deficiency, unspecified

== ENCOUNTER → 2023-05-23 | Outpatient (REF) | payer MEDICAID ==
[2023-05-24 10:37] LABS: HEMOGLOBIN A1c 9.8 % (4.0-6.0)
[2023-05-24 11:01] LABS: ALBUMIN 3.7 G/DL (3.2-5.2); ALKALINE PHOSPHATASE 91 U/L (46-116); ALT/SGPT 22 U/L (7.0-40); AST/SGOT 11 U/L (<34); BILIRUBIN,TOTAL 0.4 MG/DL (0.3-1.2); BLOOD UREA NITROGEN 12 MG/DL (9-23); CALCIUM LEVEL 9.4 MG/DL (8.5-10.1); CARBON DIOXIDE LEVEL 29 MMOL/L (20-31); CHLORIDE LEVEL 105 MMOL/L (98-107); CREATININE FOR GFR 0.53 MG/DL (0.55-1.30); GLOMERULAR FILTRATION RATE > 60.0 (>60); GLUCOSE, FASTING 180 MG/DL (60-100); POTASSIUM SERUM 6.1 MMOL/L (3.5-5.1); SODIUM LEVEL 138 MMOL/L (136-145)
== END ==
LOC: M PLALAB 09:34
PROVIDERS: ATTEND Nurse Practitioner Adult Health
DX: E11.42 Type 2 diabetes mellitus with diabetic polyneuropathy (principal)

== ENCOUNTER 2023-06-06 13:36 | Emergency (ER) | payer MEDICAID ==
[~2023-06-06] VITALS: Ht 147.3 cm; Wt 84.3 kg
[2023-06-06 14:32] LABS: BASO # 0.1 10^3/uL (0.0-0.2); BASO % 0.5 % (0.0-1.0); EOS % 0.2 % (0.0-3.0); HEMATOCRIT 45.9 % (36.0-47.0); HEMOGLOBIN 15.5 g/dl (12.0-15.5); LYMPH # 2.3 10^3/uL (1.5-5.0); LYMPH % 22.7 % (24.0-44.0); MEAN CORPUSCULAR HEMOGLOBIN 28.7 pg (27.0-33.0); MEAN CORPUSCULAR HGB CONC 33.8 g/dl (32.0-36.5); MEAN CORPUSCULAR VOLUME 84.8 fl (80.0-96.0); MONO # 0.5 10^3/uL (0.0-0.8); MONO % 5.1 % (2.0-8.0); NEUTROPHILS # 7.2 10^3/uL (1.5-8.5); NEUTROPHILS % 71.2 % (36.0-66.0); PLATELET COUNT, AUTOMATED 315 10^3/uL (150-450); RED BLOOD COUNT 5.41 10^6/uL (4.00-5.40); WHITE BLOOD COUNT 10.1 10^3/uL (4.0-10.0)
[2023-06-06 14:46] LABS: LIPASE 41 U/L (12-53)
[2023-06-06 14:49] LABS: ALBUMIN 3.5 G/DL (3.2-5.2); ALKALINE PHOSPHATASE 63 U/L (46-116); ALT/SGPT 25 U/L (7.0-40); AST/SGOT 13 U/L (<34); BILIRUBIN,DIRECT 0.2 MG/DL (<0.4); BILIRUBIN,TOTAL 0.6 MG/DL (0.3-1.2); BLOOD UREA NITROGEN 9 MG/DL (9-23); CALCIUM LEVEL 9.2 MG/DL (8.5-10.1); CARBON DIOXIDE LEVEL 26 MMOL/L (20-31); CHLORIDE LEVEL 106 MMOL/L (98-107); CREATININE FOR GFR 0.49 MG/DL (0.55-1.30); GLOMERULAR FILTRATION RATE > 60.0 (>60); GLUCOSE, FASTING 210 MG/DL (60-100); POTASSIUM SERUM 3.7 MMOL/L (3.5-5.1); SODIUM LEVEL 142 MMOL/L (136-145); TOTAL PROTEIN 6.5 G/DL (5.7-8.2)
[2023-06-06] MEDS: METOCLOPRAMIDE INJ 10MG/2ML VIAL IV ONE (15:10)
[2023-06-06] MEDS: NS 1,000 ML IV ONE (15:10)
[2023-06-06 15:17] LABS: HCG, SERUM QUALITATIVE NEGATIVE (NEGATIVE)
[2023-06-06] MEDS ORDERED: ONDA-83 PO (16:15)
[2023-06-06 16:36] VITALS: BP 112/54; TEMP 98.1; O2SAT 97
== END 2023-06-06 16:51 | disposition home or self-care (01) ==
LOC: M ED 13:36 → EDBD 13:36 → M ED 16:51
DX: R11.10 Vomiting, unspecified (principal); R19.7 Diarrhea, unspecified; K21.9 Gastro-esophageal reflux disease without esophagitis; E11.9 Type 2 diabetes mellitus without complications; E78.5 Hyperlipidemia, unspecified; J45.909 Unspecified asthma, uncomplicated; F17.200 Nicotine dependence, unspecified, uncomplicated; Z91.041 Radiographic dye allergy status; Z88.6 Allergy status to analgesic agent; Z88.8 Allergy status to other drugs, medicaments and biological substances; Z79.52 Long term (current) use of systemic steroids; Z79.891 Long term (current) use of opiate analgesic; Z79.4 Long term (current) use of insulin; Z79.83 Long term (current) use of bisphosphonates; Z79.85 Long-term (current) use of injectable non-insulin antidiabetic drugs; Z79.899 Other long term (current) drug therapy
CPT/HCPCS: 80048; 80076; 83605; 83690; 84703; 85025; 93041; 96361; 96374; 99285; J2765

== ENCOUNTER 2023-06-08 16:51 | Emergency (ER) | payer MEDICAID ==
[~2023-06-08] VITALS: Ht 147.3 cm; Wt 84.1 kg
[~2023-06-08 16:51] MED LIST changes: +ONDA-83 PO
[2023-06-08 17:09] VITALS: TEMP 97.8; O2SAT 94
[2023-06-08 19:06] LABS: BASO # 0.1 10^3/uL (0.0-0.2); BASO % 0.5 % (0.0-1.0); EOS # 0.1 10^3/uL (0.0-0.5); EOS % 0.6 % (0.0-3.0); HEMATOCRIT 44.4 % (36.0-47.0); HEMOGLOBIN 15.1 g/dl (12.0-15.5); LYMPH # 3.1 10^3/uL (1.5-5.0); MEAN CORPUSCULAR HEMOGLOBIN 29.3 pg (27.0-33.0); MEAN CORPUSCULAR VOLUME 86.2 fl (80.0-96.0); MONO # 0.4 10^3/uL (0.0-0.8); MONO % 4.5 % (2.0-8.0); NEUTROPHILS % 62.1 % (36.0-66.0); PLATELET COUNT, AUTOMATED 319 10^3/uL (150-450); RED BLOOD COUNT 5.15 10^6/uL (4.00-5.40); WHITE BLOOD COUNT 9.7 10^3/uL (4.0-10.0)
[2023-06-08 19:17] LABS: INR 1.1; PARTIAL THROMBOPLASTIN TIME 25.6 SECONDS (24.8-34.2); PROTHROMBIN TIME 13.9 SECONDS (12.5-14.5)
[2023-06-08 19:22] LABS: C REACTIVE PROTEIN QUANTITATIV < 0.40 MG/DL (<1.0); CK-MB VALUE MASS < 1.0 NG/ML (<3.6)
[2023-06-08 19:24] LABS: ALBUMIN 3.5 G/DL (3.2-5.2); ALKALINE PHOSPHATASE 65 U/L (46-116); ALT/SGPT 25 U/L (7.0-40); AST/SGOT 12 U/L (<34); BILIRUBIN,DIRECT 0.1 MG/DL (<0.4); BILIRUBIN,TOTAL 0.4 MG/DL (0.3-1.2); BLOOD UREA NITROGEN 5 MG/DL (9-23); CARBON DIOXIDE LEVEL 27 MMOL/L (20-31); CHLORIDE LEVEL 107 MMOL/L (98-107); CREATININE FOR GFR 0.49 MG/DL (0.55-1.30); FREE T4 1.42 NG/DL (0.89-1.76); GLOMERULAR FILTRATION RATE > 60.0 (>60); GLUCOSE, FASTING 193 MG/DL (60-100); MAGNESIUM LEVEL 1.9 MG/DL (1.8-2.4); SODIUM LEVEL 142 MMOL/L (136-145); TOTAL PROTEIN 6.6 G/DL (5.7-8.2)
[2023-06-08 19:25] LABS: THYROID STIMULATING HORMONE 0.334 uIU/ML (0.55-4.78)
[2023-06-08 19:29] LABS: PROCALCITONIN <0.04 ng/ml
[2023-06-08 19:35] LABS: CPK CREATINE PHOSPHOKINASE 147 U/L (34-145); MB/CK RELATIVE INDEX 0.68 (< OR =4)
[2023-06-08 19:40] LABS: HCG, SERUM QUALITATIVE NEGATIVE (NEGATIVE)
[2023-06-08] MEDS ORDERED: ARIP1TAB6 (19:42)
[2023-06-08] MEDS ORDERED: TIRZ5PEN (19:42)
[2023-06-08] MEDS ORDERED: LEXA1TAB PO (19:42)
[2023-06-08 19:43] VITALS: BP 123/66
[2023-06-08] MEDS: NS 1,000 ML IV ONE (19:45)
[2023-06-08] MEDS: GABAPENTIN 300 MG CAP PO ONE (19:45)
[2023-06-08 19:59] LABS: CK-MB VALUE MASS < 1.0 NG/ML (<3.6)
[2023-06-08 20:00] LABS: CPK CREATINE PHOSPHOKINASE 146 U/L (34-145); MB/CK RELATIVE INDEX 0.68 (< OR =4)
== END 2023-06-08 21:02 | disposition home or self-care (01) ==
LOC: M ED 16:51 → EDBD 16:51 → M ED 21:02
DX: R55 Syncope and collapse (principal); F17.200 Nicotine dependence, unspecified, uncomplicated; G56.01 Carpal tunnel syndrome, right upper limb; K21.9 Gastro-esophageal reflux disease without esophagitis; E11.9 Type 2 diabetes mellitus without complications; F41.9 Anxiety disorder, unspecified; F31.9 Bipolar disorder, unspecified; Z79.1 Long term (current) use of non-steroidal anti-inflammatories (NSAID); Z79.4 Long term (current) use of insulin; Z79.52 Long term (current) use of systemic steroids; Z79.891 Long term (current) use of opiate analgesic; Z79.899 Other long term (current) drug therapy; Z91.041 Radiographic dye allergy status; Z91.02 Food additives allergy status; Z88.6 Allergy status to analgesic agent; Z88.8 Allergy status to other drugs, medicaments and biological substances

== ENCOUNTER → 2023-08-28 | Outpatient (REF) | payer MEDICAID ==
[~2023-08-28] MED LIST changes: +ARIP1TAB6; +DOXY-323 PO; -DOXY-443 PO; +LEXA1TAB PO; +TIRZ5PEN
[2023-08-28 17:44] LABS: ALBUMIN 3.5 G/DL (3.2-5.2); ALKALINE PHOSPHATASE 70 U/L (46-116); ALT/SGPT 23 U/L (7.0-40); AST/SGOT 11 U/L (<34); BILIRUBIN,TOTAL 0.6 MG/DL (0.3-1.2); BLOOD UREA NITROGEN 10 MG/DL (9-23); CALCIUM LEVEL 9.2 MG/DL (8.5-10.1); CARBON DIOXIDE LEVEL 26 MMOL/L (20-31); CHLORIDE LEVEL 106 MMOL/L (98-107); CHOLESTEROL LEVEL 218 MG/DL (<200); CHOLESTEROL RISK RATIO 4.81 (<5); CREATININE FOR GFR 0.53 MG/DL (0.55-1.30); GLOMERULAR FILTRATION RATE > 60.0 (>60); GLUCOSE, FASTING 127 MG/DL (60-100); HDL CHOLESTEROL 45.3 MG/DL (>40); LDL CHOLESTEROL 135.1 MG/DL (<100); NON-HDL-C 172.7 MG/DL; POTASSIUM SERUM 4.6 MMOL/L (3.5-5.1); SODIUM LEVEL 138 MMOL/L (136-145); THYROID STIMULATING HORMONE 0.345 uIU/ML (0.55-4.78); TOTAL PROTEIN 6.7 G/DL (5.7-8.2); TRIGLYCERIDES LEVEL 188 MG/DL (<150)
[2023-08-28 17:45] LABS: HEMOGLOBIN A1c 7.9 % (4.0-6.0)
== END ==
LOC: M SFHCPLAZ 16:56
PROVIDERS: ATTEND Nurse Practitioner Adult Health
DX: E78.2 Mixed hyperlipidemia (principal)

== ENCOUNTER → 2023-12-05 | Outpatient (REF) | payer MEDICAID ==
[~2023-12-05] MED LIST changes: -DOXY-323 PO; +DOXY-441 PO; +GABA-1635 PO; -GABA800T4 PO
== END ==
LOC: M SFHCPLAZ 09:32
PROVIDERS: ATTEND Nurse Practitioner Adult Health
DX: R09.81 Nasal congestion (principal)

== ENCOUNTER → 2023-12-21 | Outpatient (CLI) | payer MEDICAID ==
[2023-12-21 13:01] LABS: HEMOGLOBIN A1c 10.7 % (4.0-6.0)
[2023-12-21 13:07] LABS: CREATININE, URINE 214.5 MG/DL
[2023-12-21 13:11] LABS: THYROID STIMULATING HORMONE 0.641 uIU/ML (0.55-4.78)
[2023-12-21 13:13] LABS: AMYLASE 58 U/L (30-118)
[2023-12-21 13:14] LABS: LIPASE 38 U/L (12-53)
[2023-12-21 13:15] LABS: TOTAL 25(OH) VITAMIN D 24.7 NG/ML (20.0-100.0)
[2023-12-21 13:16] LABS: ALBUMIN 3.3 G/DL (3.2-5.2); ALKALINE PHOSPHATASE 94 U/L (35-104); ALT/SGPT 19 U/L (7.0-40); AST/SGOT < 8 U/L (<34); BILIRUBIN,TOTAL 0.4 MG/DL (0.3-1.2); BLOOD UREA NITROGEN 6 MG/DL (9-23); CALCIUM LEVEL 9.2 MG/DL (8.5-10.1); CARBON DIOXIDE LEVEL 28 MMOL/L (20-31); CHLORIDE LEVEL 107 MMOL/L (98-107); CREATININE FOR GFR 0.45 MG/DL (0.55-1.30); GLOMERULAR FILTRATION RATE > 60.0 (>58); GLUCOSE, FASTING 224 MG/DL (60-100); POTASSIUM SERUM 4.1 MMOL/L (3.5-5.1); SODIUM LEVEL 139 MMOL/L (136-145); TOTAL PROTEIN 6.6 G/DL (5.7-8.2)
[2023-12-21 13:22] LABS: MAU/CREAT RATIO 292.3 MCG/MG (0.0-30.0)
== END ==
LOC: M LAB 10:49
PROVIDERS: ATTEND Nurse Practitioner Adult Health
DX: E11.42 Type 2 diabetes mellitus with diabetic polyneuropathy (principal); E55.9 Vitamin D deficiency, unspecified

== ENCOUNTER → 2024-04-15 | Outpatient (CLI) | payer MEDICAID ==
[~2024-04-15] MED LIST changes: +NYST1POW3 TOP; -NYST1POW9 TOP
[2024-04-15 13:44] LABS: HEMOGLOBIN 15.4 g/dl (12.0-15.5); MEAN CORPUSCULAR HEMOGLOBIN 28.3 pg (27.0-33.0); MEAN CORPUSCULAR HGB CONC 33.5 g/dl (32.0-36.5); MEAN CORPUSCULAR VOLUME 84.6 fl (80.0-96.0); PLATELET COUNT, AUTOMATED 351 10^3/uL (150-450); RED BLOOD COUNT 5.44 10^6/uL (4.00-5.40); WHITE BLOOD COUNT 10.9 10^3/uL (4.0-10.0)
[2024-04-15 14:15] LABS: LIPASE 80 U/L (12-53)
[2024-04-15 14:18] LABS: ALBUMIN 3.6 G/DL (3.2-5.2); ALKALINE PHOSPHATASE 89 U/L (35-104); ALT/SGPT 22 U/L (7.0-40); AMYLASE 103 U/L (30-118); AST/SGOT 10 U/L (<34); BILIRUBIN,TOTAL 0.5 MG/DL (0.3-1.2); BLOOD UREA NITROGEN 8 MG/DL (9-23); CALCIUM LEVEL 9.3 MG/DL (8.5-10.1); CARBON DIOXIDE LEVEL 26 MMOL/L (20-31); CHLORIDE LEVEL 101 MMOL/L (98-107); CHOLESTEROL LEVEL 212 MG/DL (<200); CREATININE FOR GFR 0.54 MG/DL (0.55-1.30); GLOMERULAR FILTRATION RATE > 60.0 (>58); GLUCOSE, FASTING 222 MG/DL (60-100); HDL CHOLESTEROL 64.1 MG/DL (>40); LDL CHOLESTEROL 107.9 MG/DL (<100); NON-HDL-C 147.9 MG/DL; POTASSIUM SERUM 4.3 MMOL/L (3.5-5.1); SODIUM LEVEL 139 MMOL/L (136-145); TOTAL PROTEIN 7.2 G/DL (5.7-8.2); TRIGLYCERIDES LEVEL 200 MG/DL (<150)
[2024-04-15 14:19] LABS: CREATININE, URINE 169.1 MG/DL
[2024-04-15 14:36] LABS: MAU/CREAT RATIO 572.4 MCG/MG (0.0-30.0)
== END ==
LOC: M PLALAB 11:27
PROVIDERS: ATTEND Nurse Practitioner Adult Health
DX: Z00.00 Encounter for general adult medical examination without abnormal findings (principal); E78.2 Mixed hyperlipidemia; E11.42 Type 2 diabetes mellitus with diabetic polyneuropathy

== ENCOUNTER → 2024-06-12 | Outpatient (CLI) | payer MEDICAID ==
[2024-06-12 11:59] LABS: THYROID STIMULATING HORMONE 0.622 uIU/ML (0.55-4.78)
[2024-06-12 12:03] LABS: ALBUMIN 3.6 G/DL (3.2-5.2); ALKALINE PHOSPHATASE 65 U/L (35-104); ALT/SGPT 19 U/L (7.0-40); AST/SGOT 13 U/L (<34); BILIRUBIN,TOTAL 0.4 MG/DL (0.3-1.2); BLOOD UREA NITROGEN 11 MG/DL (9-23); CALCIUM LEVEL 9.1 MG/DL (8.5-10.1); CARBON DIOXIDE LEVEL 27 MMOL/L (20-31); CHLORIDE LEVEL 104 MMOL/L (98-107); CREATININE FOR GFR 0.52 MG/DL (0.55-1.30); GLOMERULAR FILTRATION RATE > 90.0 (>58); GLUCOSE, FASTING 143 MG/DL (60-100); LITHIUM LEVEL 0.25 MMOL/L (1.0-1.20); POTASSIUM SERUM 3.8 MMOL/L (3.5-5.1); SODIUM LEVEL 138 MMOL/L (136-145); TOTAL PROTEIN 7.1 G/DL (5.7-8.2)
== END ==
LOC: M EKG 09:54
PROVIDERS: ATTEND Nurse Practitioner Psychiatric/Mental Health
DX: F32.A Depression, unspecified (principal)

== ENCOUNTER → 2024-07-15 | Outpatient (CLI) | payer MEDICAID ==
[~2024-07-15] MED LIST changes: +LIDO1ADH93 TD; -LIDO5DIS41 TD
[2024-07-15 19:06] LABS: AMYLASE 85 U/L (30-118); LIPASE 39 U/L (12-53)
[2024-07-15 19:08] LABS: ALBUMIN 3.8 G/DL (3.2-5.2); ALKALINE PHOSPHATASE 76 U/L (35-104); ALT/SGPT 31 U/L (7.0-40); AST/SGOT 20 U/L (<34); BILIRUBIN,TOTAL 0.5 MG/DL (0.3-1.2); BLOOD UREA NITROGEN 12 MG/DL (9-23); CALCIUM LEVEL 9.6 MG/DL (8.5-10.1); CARBON DIOXIDE LEVEL 30 MMOL/L (20-31); CHLORIDE LEVEL 100 MMOL/L (98-107); CREATININE FOR GFR 0.58 MG/DL (0.55-1.30); GLOMERULAR FILTRATION RATE > 90.0 (>58); GLUCOSE, FASTING 109 MG/DL (60-100); POTASSIUM SERUM 4.1 MMOL/L (3.5-5.1); SODIUM LEVEL 140 MMOL/L (136-145); TOTAL PROTEIN 7.3 G/DL (5.7-8.2)
[2024-07-15 19:24] LABS: HEMOGLOBIN A1c 8.2 % (4.0-6.0)
== END ==
LOC: M PLALAB 15:26
PROVIDERS: ATTEND Nurse Practitioner Adult Health
DX: E11.42 Type 2 diabetes mellitus with diabetic polyneuropathy (principal)

== ENCOUNTER → 2024-10-01 | Outpatient (CLI) | payer MEDICAID ==
[~2024-10-01] MED LIST changes: -DEPA250T32 PO; +DIVA-65 PO
[2024-10-01 15:21] LABS: ALT/SGPT 25 U/L (7.0-40); AST/SGOT 14 U/L (<34); CALCIUM LEVEL 9.2 MG/DL (8.5-10.1); CARBON DIOXIDE LEVEL 26 MMOL/L (20-31); CHLORIDE LEVEL 105 MMOL/L (98-107); CHOLESTEROL LEVEL 178 MG/DL (<200); CHOLESTEROL RISK RATIO 3.73 (<5); CREATININE FOR GFR 0.60 MG/DL (0.55-1.30); GLOMERULAR FILTRATION RATE > 90.0 (>58); LDL CHOLESTEROL 75.4 MG/DL (<100); NON-HDL-C 130.4 MG/DL; POTASSIUM SERUM 4.3 MMOL/L (3.5-5.1); SODIUM LEVEL 140 MMOL/L (136-145); TRIGLYCERIDES LEVEL 275 MG/DL (<150)
[2024-10-01 15:24] LABS: TOTAL 25(OH) VITAMIN D 31.8 NG/ML (20.0-100.0)
[2024-10-01 15:34] LABS: CREATININE, URINE 170.5 MG/DL
[2024-10-01 15:41] LABS: ESTIMATED AVERAGE GLUCOSE 166.0 MG/DL (60-110)
[2024-10-01 15:52] LABS: MALB URINE SIEMENS 439.0 MG/L; MAU/CREAT RATIO 257.4 MCG/MG (0.0-30.0)
== END ==
LOC: M PLALAB 12:42
PROVIDERS: ATTEND Nurse Practitioner Adult Health
DX: E11.42 Type 2 diabetes mellitus with diabetic polyneuropathy (principal); E78.2 Mixed hyperlipidemia; E55.9 Vitamin D deficiency, unspecified

== ENCOUNTER 2024-11-02 23:21 | Emergency (ER) | payer MEDICAID ==
[~2024-11-02] VITALS: Ht 147.3 cm; Wt 88.2 kg
[~2024-11-02 23:21] MED LIST changes: +ERGO125013 PO; -VITA500045 PO
[2024-11-03] MEDS: KETOROLAC 30 MG/ML 1 ML VIAL IV ONE (03:17)
[2024-11-03] MEDS ORDERED: MAGICMW SS (03:23)
[2024-11-03 03:54] VITALS: BP 127/81; TEMP 97; O2SAT 99
== END 2024-11-03 03:56 | disposition home or self-care (01) ==
LOC: M ED 23:21
DX: R13.10 Dysphagia, unspecified (principal); E11.9 Type 2 diabetes mellitus without complications; I12.9 Hypertensive chronic kidney disease with stage 1 through stage 4 chronic kidney disease, or unspecified chronic kidney disease; F90.9 Attention-deficit hyperactivity disorder, unspecified type; F31.30 Bipolar disorder, current episode depressed, mild or moderate severity, unspecified; F42.9 Obsessive-compulsive disorder, unspecified; F17.200 Nicotine dependence, unspecified, uncomplicated; Z79.899 Other long term (current) drug therapy; Z91.041 Radiographic dye allergy status; Z88.8 Allergy status to other drugs, medicaments and biological substances; Z91.018 Allergy to other foods
CPT/HCPCS: 70360; 96374; 99283; J1885

== ENCOUNTER 2025-01-21 01:39 | Emergency (ER) | payer MEDICAID ==
[~2025-01-21] VITALS: Ht 147.3 cm; Wt 85.0 kg
[~2025-01-21 01:39] MED LIST changes: +MAGICMW SS
[2025-01-21 02:46] LABS: BASO # 0.1 10^3/uL (0.0-0.2); BASO % 0.5 % (0.0-1.0); EOS # 0.2 10^3/uL (0.0-0.5); EOS % 2.1 % (0.0-3.0); LYMPH # 3.8 10^3/uL (1.5-5.0); LYMPH % 39.9 % (24.0-44.0); MONO # 0.7 10^3/uL (0.0-0.8); MONO % 7.2 % (2.0-8.0); NEUTROPHILS # 4.7 10^3/uL (1.5-8.5); NEUTROPHILS % 50.1 % (36.0-66.0); PLATELET COUNT, AUTOMATED 386 10^3/uL (150-450)
[2025-01-21 03:02] LABS: HCG, SERUM QUALITATIVE NEGATIVE (NEGATIVE)
[2025-01-21 03:07] LABS: CALCIUM LEVEL 9.2 MG/DL (8.5-10.1); CARBON DIOXIDE LEVEL 25 MMOL/L (20-31); CHLORIDE LEVEL 104 MMOL/L (98-107); CREATININE FOR GFR 0.55 MG/DL (0.55-1.30); GLOMERULAR FILTRATION RATE > 90.0 (>58); POTASSIUM SERUM 3.9 MMOL/L (3.5-5.1); SODIUM LEVEL 139 MMOL/L (136-145)
[2025-01-21 03:10] LABS: INR 0.96
[2025-01-21 03:39] LABS: KETONE, URINE AUTO RFX NEGATIVE (NEGATIVE); LEUKOCYTE ESTERASE UR AUTO RFX NEGATIVE (NEGATIVE); MUCUS, URINE RFX SMALL (NEGATIVE); NITRITE, URINE AUTO RFX NEGATIVE (NEGATIVE); RBC, URINE AUTO RFX TNTC /HPF (0-3); SQUAM EPITHELIAL CELL UR AURFX 3 /HPF (0-6); WBC, URINE AUTO RFX 0 /HPF (0-3)
[2025-01-21 04:38] LABS: Trichomonas vaginalis (AMP) NOT DETECTED (NEGATIVE)
[2025-01-21 06:56] VITALS: BP 127/69; TEMP 97.7; O2SAT 97
[2025-01-21 06:59] LABS: GC DNA AMPLIFICATION NEGATIVE (NEGATIVE)
== END 2025-01-21 06:57 | disposition home or self-care (01) ==
LOC: M ED 01:39
DX: N93.8 Other specified abnormal uterine and vaginal bleeding (principal); D25.9 Leiomyoma of uterus, unspecified; E11.40 Type 2 diabetes mellitus with diabetic neuropathy, unspecified; E78.5 Hyperlipidemia, unspecified; E66.9 Obesity, unspecified; F31.9 Bipolar disorder, unspecified; Z79.4 Long term (current) use of insulin; Z79.899 Other long term (current) drug therapy; Z91.041 Radiographic dye allergy status; Z88.8 Allergy status to other drugs, medicaments and biological substances